=== PATIENT | male | born 1995 | race Caucasian/White ===

== ENCOUNTER 2019-05-25 13:20 | Emergency (ER) | payer SELFPAY | END 2019-05-25 15:47 | disposition home or self-care (01) | PROVIDERS: Emergency Provider Physician Assistant; Visit Provider Physician Assistant | DX: S62.254A Nondisplaced fracture of neck of first metacarpal bone, right hand, initial encounter for closed fracture (principal); X58.XXXA Exposure to other specified factors, initial encounter; I10 Essential (primary) hypertension; F17.210 Nicotine dependence, cigarettes, uncomplicated ==

== ENCOUNTER → 2019-06-03 15:16 | Outpatient (BNVA) | payer SELFPAY | PROVIDERS: PCP Family Medicine; Visit Provider Orthopaedic Surgery | DX: S62.201A Unspecified fracture of first metacarpal bone, right hand, initial encounter for closed fracture (principal); X58.XXXA Exposure to other specified factors, initial encounter | CPT/HCPCS: 73140 ==

== ENCOUNTER 2019-06-03 16:26 | Outpatient (CLI) | payer SELFPAY | END 2019-06-03 16:27 | disposition home or self-care (01) | LOC: SPT 16:27 | PROVIDERS: PCP Family Medicine; Visit Provider Orthopaedic Surgery | DX: Z46.89 Encounter for fitting and adjustment of other specified devices (principal) | CPT/HCPCS: L3809 ==

== ENCOUNTER 2019-06-06 17:29 | Inpatient (IN) | payer SELFPAY ==
[2019-06-06 17:30] VITALS: BP 163/110; PULSE 70; RESP 16; TEMP 36.6; O2SAT 97
[2019-06-06 17:31] VITALS: BMI 30.1
[2019-06-06 18:02] LABS: Basophils % 0.4 %; Eosinophils # 0.2 10^3/uL (0.0-0.8); Eosinophils % 1.5 %; Hematocrit 50.6 % (42.0-52.0); Hemoglobin 17.6 g/dL (11.7-16.6); Lymphocytes # 2.6 10^3/uL (0.8-4.8); Lymphocytes % 22.5 %; Mean Corpuscular HGB Conc 34.8 g/dL (30.0-36.0); Mean Corpuscular Hemoglobin 30.5 pg (28.0-34.0); Mean Corpuscular Volume 87.7 fL (80-94); Mean Platelet Volume 10.6 fL (7.4-10.4); Monocytes # 0.6 10^3/uL (0.2-0.9); Monocytes % 5.4 %; Neutrophils % 69.8 %; Nucleated Red Blood Cells % 0 %; Platelet Count 278 10^3/cmm (130-400); Red Blood Count 5.77 10^6/uL (4.1-5.3); White Blood Count 11.4 10^3/uL (4.0-10.0)
[2019-06-06 18:21] LABS: Lithium 0.1 mmol/L (0.6-1.2)
[2019-06-06 18:27] LABS: Alanine Aminotransferase 80 U/L (0-41); Albumin Level 5.4 g/dL (3.5-5.2); Alkaline Phosphatase 70 IU/L (40-130); Anion Gap 20.5 (5-19); Aspartate Amino Transferase 35 U/L (0-40); Blood Urea Nitrogen 11 mg/dL (6-20); Calcium 10.6 mg/Dl (8.6-10.0); Carbon Dioxide 27 mmol/L (22-29); Chloride 104 mmol/L (98-107); Globulin 3.5 g/dL (1.3-4.6); Glomerular Filtration Rate 104.6 mL/min (90-130); Glucose 82 mg/dL (74-109); Phenytoin Dilantin 0.8 ug/mL (10-20); Potassium 3.5 mmol/L (3.5-5.1); Sodium 148 mmol/L (136-145); Thyroid Stimulating Hormone 2.22 uIU/mL (0.27-4.20); Total Bilirubin 0.7 mg/dL (0.15-1.2); Total Protein 8.9 g/dL (6.6-8.7); Valproic Acid Level 2.8 mcg/mL (50-100)
[2019-06-06 18:29] LABS: Acetaminophen < 5.0 ug/mL (10-30); Alcohol Level < 10 mg/dL (0-10); Salicylate < 0.3 mg/dL (3-10)
--- NOTE | 2019-06-06 18:31 | ED_ITS ---
Entered by Letty Varghese, acting as scribe for Ramez Ramirez MD, [facility] [place] Jun 06, 2019 17:29 HPI - Psych General: Chief Complaint: Psychiatric Symptoms Stated Complaint: SI Time Seen by Provider: 06/06/19 18:29 Source: patient Mode of arrival: ambulatory Limitations: no limitations History of Present Illness: HPI Narrative: 23 yo Male presents to ED with complaint of suicidal ideation. Pt states that he started feeling that way at 1500 today. Pt states that he has attempted to slit his throat, cut himself, and walk in front of traffic. MD complaint: suicidal ideation Onset (ago): hour(s) (3.5) History of same: Yes Associated symptoms: Reports suicidal ideation Review of Systems General: Reports: 10 or more systems reviewed and unremarkable except in HPI and below Psych: Reports: suicidal ideation PFSH ED PFSH: Statuses (acute, chronic, etc) shown below reflect problem list status as previously entered and may not be historically accurate Medical History (Updated 06/06/19 @ 19:32 by Ramez Ramirez MD, [facility] [place]) Chronic back pain (Acute) Depression (Acute) Heart murmur (Acute) Hemoptysis (Acute) Hepatitis (Acute) History of suicidal ideation (Acute) HTN (hypertension) (Acute) Leukocytosis (Acute) Pharyngitis (Acute) Tension type headache (Acute) Tonsillitis (Acute) Surgical History (Updated 06/06/19 @ 19:09 by Letty Varghese) History of circumcision (Acute) Social History Smoking and tobacco status: current every day smoker cigarettes Packs smoked per day: 1 Alcohol intake: current Alcohol intake frequency: holidays/special occasions only Physical Exam Const: COMMON NORMALS: no apparent distress, average body habitus, oriented x3, no limitations, healthy appearing, alert and well nourished HENMT: COMMON NORMALS: normocephalic, head/scalp atraumatic, hearing grossly normal bilaterally, external ears normal, EAC's normal, TM's normal bilaterally, external nose normal, nasal mucous membranes and turbinates normal, moist oral mucous membranes, oropharynx normal, dentition normal and gingiva normal HEAD & SCALP: normocephalic and atraumatic NOSE: external nose normal and nasal mucous membranes and turbinates normal EXTERNAL EAR: Yes external ears normal EXTERNAL AUDITORY CANAL: EAC's normal TYMPANIC MEMBRANE: TM's normal bilaterally Eye: COMMON NORMALS: PERRL, EOMs intact bilaterally, conjunctivae normal, no scleral icterus, no papilledema, normal visual small by confrontation and fundi normal bilaterally CONJUNCTIVA: Yes conjunctivae normal PUPIL: Yes PERRL DIRECT OPHTHALMOSCOPY: Yes no papilledema and Yes fundi normal bilaterally Neck/C-Spine: COMMON NORMALS: full ROM, supple, no meningeal signs, no JVD and no carotid bruits Chest: COMMONS NORMALS: inspection of chest normal and palpation of chest normal Resp: COMMON NORMALS: normal respiratory effort, no retractions, no use of accessory muscles, clear to auscultation bilaterally and percussion normal AUSCULTATION: clear to auscultation bilaterally PERCUSSION: percussion normal Cardio: COMMON NORMALS: no JVD, regular rate, regular rhythm, S1 normal heart sound, S2 normal heart sound, no gallops, no clicks, no murmurs, no rub and peripheral pulses 2+ throughout RATE: regular rate RHYTHM: regular rhythm HEART SOUNDS: S1 normal and S2 normal PERIPHERAL PULSES: pulses 2+ throughout GI: COMMON NORMALS: normal to inspection, nondistended, normoactive bowel sounds, soft to palpation, non-tender, no hepatosplenomegaly, no masses and no bruits PALPATION: Yes soft and Yes no hepatosplenomegaly : COMMON NORMALS: Yes no CVA tenderness BLADDER/KIDNEY EXAM: Yes no CVA tenderness Back/Pelvis: COMMON NORMALS: no CVA tenderness Extremity: COMMON NORMALS: normal to inspection, full ROM, normal capillary refill, no joint enlargement, no clubbing, cyanosis or edema, no calf tenderness and no pedal edema Neuro: COMMON NORMALS: oriented x3 SENSORIUM/ORIENTATION: Yes alert MEN INGEAL SIGNS: Yes no meningeal signs Skin: COMMON NORMALS: no rashes or lesions noted, no wounds, skin turgor normal, no jaundice, no petechiae and no mottling GENERAL SKIN EXAM: no rashes or lesions noted and turgor normal MDM - Psych MDM Narrative: Medical decision making narrative: 23-year-old gentleman who presented to the emergency department with suicidal ideation. He was medically cleared and is admitted to the neuropsychiatric unit for further evaluation and management. He is voluntary at this time. Lab Data: Labs: Lab Results 06/06/19 06/06/19 06/06/19 Range/Units 05:44 05:44 17:56 WBC 11.4 H (4.0-10.0) 10^3/ uL RBC 5.77 H (4.1-5.3) 10^6/u L Hgb 17.6 H (11.7-16.6) g/dL Hct 50.6 (42.0-52.0) % MCV 87.7 (80-94) fL MCH 30.5 (28.0-34.0) pg MCHC 34.8 (30.0-36.0) g/dL RDW 12.0 L (12.1-15.1) % Plt Count 278 (130-400) 10^3/c mm MPV 10.6 H (7.4-10.4) fL Neut % (Auto) 69.8 % Lymph % (Auto) 22.5 % [place] % (Auto) 5.4 % Eos % (Auto) 1.5 % Baso % (Auto) 0.4 % Neut # (Auto) 8.0 H (1.8-7.7) 10^3/u L Lymph # (Auto) 2.6 (0.8-4.8) 10^3/u L [place] # (Auto) 0.6 (0.2-0.9) 10^3/u L Eos # (Auto) 0.2 (0.0-0.8) 10^3/u L Baso # (Auto) 0.0 (0.0-0.1) 10^3/u L Nucleated RBC % (a uto) 0 % Nucleated RBCs # 0.0 /100WBC Sodium (136-145) mmol/L Potassium (3.5-5.1) mmol/L Chloride (98-107) mmol/L Carbon Dioxide (22-29) mmol/L Anion Gap (5-19) BUN (6-20) mg/dL Creatinine (0.7-1.2) mg/dL GFR Calculation (90-130) mL/min Glucose (74-109) mg/dL Calcium (8.6-10.0) mg/Dl Total Bilirubin (0.15-1.2) mg/dL AST (0-40) U/L ALT (0-41) U/L Alkaline Phosphata se (40-130) IU/L Total Protein (6.6-8.7) g/dL Albumin (3.5-5.2) g/dL Globulin (1.3-4.6) g/dL TSH (0.27-4.20) uIU/ mL Urine Color Belk[place] (Yellow) Urine Appearance Sl hazy (CLEAR) Urine pH 5 (5-7) Ur Specific Gravit y 1.030 (1.005-1.030) Urine Protein 1+ H (Negative) Urine Glucose (UA) Norm (Normal) Urine Ketones 1+ H (Negative) Urine Occult Blood Neg (Negative) Urine Nitrate Negative (Negative) Urine Bilirubin 1+ H (NEGATIVE) Urine Urobilinogen 4 H (Negative) mg/dL Ur Leukocyte Lauren ase Negative (Negative) Urine RBC None (0-2) /hpf Urine WBC None (0-5) /hpf Ur Squamous Epith Cells Rare (0-5) Calcium Oxalate Cr ystal Rare /hpf Urine Bacteria Trace (NONE) Hyaline Casts 0-4 H Urine Mucus 2+ Urine Sperm 1+ Salicylates (3-10) mg/dL Urine Opiates Scre en Positve (Negative) ng/mL Acetaminophen (10-30) ug/mL Ur Barbiturates Sc reen Negative (Negative) ng/mL Phenytoin (10-20) ug/mL Valproic Acid (50-100) mcg/mL Carbamazepine (4.0-12.0) ug/mL Ur Phencyclidine S crn Negative (Negative) ng/mL U Benzodiazepines Scrn Negative (Negative) ng/mL [place] (0.6-1.2) mmol/L Urine Cocaine Scre en Negative (Negative) ng/mL U Marijuana (THC) Screen Positive H (Negative) ng/mL Ethyl Alcohol (0-10) mg/dL 06/06/19 06/06/19 Range/Units 17:56 17:56 WBC (4.0-10.0) 10^3/ uL RBC (4.1-5.3) 10^6/u L Hgb (11.7-16.6) g/dL Hct (42.0-52.0) % MCV (80-94) fL MCH (28.0-34.0) pg MCHC (30.0-36.0) g/dL RDW (12.1-15.1) % Plt Count (130-400) 10^3/c mm MPV (7.4-10.4) fL Neut % (Auto) % Lymph % (Auto) % [place] % (Auto) % Eos % (Auto) % Baso % (Auto) % Neut # (Auto) (1.8-7.7) 10^3/u L Lymph # (Auto) (0.8-4.8) 10^3/u L [place] # (Auto) (0.2-0.9) 10^3/u L Eos # (Auto) (0.0-0.8) 10^3/u L Baso # (Auto) (0.0-0.1) 10^3/u L Nucleated RBC % (a uto) % Nucleated RBCs # /100WBC Sodium 148 H (136-145) mmol/L Potassium 3.5 (3.5-5.1) mmol/L Chloride 104 (98-107) mmol/L Carbon Dioxide 27 (22-29) mmol/L Anion Gap 20.5 H (5-19) BUN 11 (6-20) mg/dL Creatinine 0.9 (0.7-1.2) mg/dL GFR Calculation 104.6 (90-130) mL/min Glucose 82 (74-109) mg/dL Calcium 10.6 H (8.6-10.0) mg/Dl Total Bilirubin 0.7 (0.15-1.2) mg/dL AST 35 (0-40) U/L ALT 80 H (0-41) U/L Alkaline Phosphata se 70 (40-130) IU/L Total Protein 8.9 H (6.6-8.7) g/dL Albumin 5.4 H (3.5-5.2) g/dL Globulin 3.5 (1.3-4.6) g/dL TSH 2.22 (0.27-4.20) uIU/ mL Urine Color (Yellow) Urine Appearance (CLEAR) Urine pH (5-7) Ur Specific Gravit y (1.005-1.030) Urine Protein (Negative) Urine Glucose (UA) (Normal) Urine Ketones (Negative) Urine Occult Blood (Negative) Urine Nitrate (Negative) Urine Bilirubin (NEGATIVE) Urine Urobilinogen (Negative) mg/dL Ur Leukocyte Lauren ase (Negative) Urine RBC (0-2) /hpf Urine WBC (0-5) /hpf Ur Squamous Epith Cells (0-5) Calcium Oxalate Cr ystal /hpf Urine Bacteria (NONE) Hyaline Casts Urine Mucus Urine Sperm Salicylates < 0.3 L (3-10) mg/dL Urine Opiates Scre en (Negative) ng/mL Acetaminophen < 5.0 L (10-30) ug/mL Ur Barbiturates Sc reen (Negative) ng/mL Phenytoin 0.8 L (10-20) ug/mL Valproic Acid 2.8 L (50-100) mcg/mL Carbamazepine 2.0 L (4.0-12.0) ug/mL Ur Phencyclidine S crn (Negative) ng/mL U Benzodiazepines Scrn (Negative) ng/mL [place] 0.1 L (0.6-1.2) mmol/L Urine Cocaine Scre en (Negative) ng/mL U Marijuana (THC) Screen (Negative) ng/mL Ethyl Alcohol < 10 (0-10) mg/dL Discharge Plan Discharge Patient Disposition: Admitted As Inpatient Clinical Impression: Suicidal ideation Condition: Stable Prescriptions: No Action trazodone 50 mg tablet 50 mg PO BEDTIME RF: 0 (DME) thumb spica splint Qty: 1 RF: 0 Rockwell 5-325 mg Tablet 1 tab PO Q8H PRN (Reason: Pain) RF: 0 Tylenol See Rx Instructions .ROUTE .COMPLEX RF: 0 ibuprofen See Rx Instructions .ROUTE .COMPLEX RF: 0 Referrals: Eunice Louis MD [Primary Care Provider] - Coding Level of Care Code ED Plumbing Contractor for Chg Fwd The documentation recorded by the Abimael valladares Carmen, accurately reflects the service I personally performed and the decisions made by Ashley lopez Adegoke I, MD, [facility] [place] Jun 06, 2019 17:29
--- NOTE | 2019-06-06 18:44 | PC.NURSE ---
See paper 1:1 cathy paperwork scanned to chart
[2019-06-06 18:47] LABS: Add Urine Microscopic? YES; Bilirubin Urine 1+ (NEGATIVE); Blood Urine Neg (Negative); Glucose Urine UA Norm (Normal); Ketones Urine 1+ (Negative); Leukocyte Esterase Urine Negative (Negative); Nitrate Urine Negative (Negative); Protein Urine 1+ (Negative); Urine Appearance SL Hazy (CLEAR); Urine Color Amber (Yellow); Urobilinogen Urine 4 mg/dL (Negative); pH Urine 5 (5-7)
[2019-06-06 18:49] LABS: Bacteria Urine TRACE; Calcium Oxalate Crystals Urine RARE /hpf; Mucus Urine 2+; Squamous Epithelial Cell Urine RARE (0-5)
[2019-06-06 18:50] LABS: Add Urine Culture? No; Hyaline Casts Urine 0-4; Sperm Urine 1+
[2019-06-06 19:21] LABS: Barbiturates Screen Urine Negative (Negative); Benzodiazepines Screen Urine Negative (Negative); Cocaine Screen Urine Negative (Negative); PCP Screen Urine Negative (Negative); THC Screen Urine Positive (Negative)
[2019-06-06 19:34] LABS: Amphetamines Screen Urine Positive (Negative)
[2019-06-06 20:00] VITALS: BP 169/107; PULSE 84; RESP 16; O2SAT 98
[2019-06-06 20:35] VITALS: BP 149/106; PULSE 82; RESP 20; TEMP 36.8; O2SAT 97
[2019-06-06] MEDS: nicotine 2 mg Gum BUCCAL (21:12)
[2019-06-06] MEDS: acetaminophen 325 mg Tablet 650 MG PO (21:12)
[2019-06-07 06:00] VITALS: BP 116/75; PULSE 74; RESP 17; TEMP 36.6; O2SAT 97
[2019-06-07 14:00] VITALS: BP 120/68; PULSE 71; RESP 20; TEMP 36.3; O2SAT 97
[2019-06-07] MEDS: acetaminophen 325 mg Tablet 650 MG PO ×2 (14:06→19:35)
[2019-06-07] MEDS: nicotine 2 mg Gum BUCCAL ×3 (14:07→23:00)
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
[2019-06-07] MEDS: fluoxetine 20 mg Capsule PO (18:18)
[2019-06-07 20:05] VITALS: BP 137/75; PULSE 73; RESP 18; TEMP 36.6; O2SAT 97
[2019-06-08 06:00] VITALS: BP 112/71; PULSE 54; RESP 15; TEMP 36.6; O2SAT 97
[2019-06-08] MEDS: fluoxetine 20 mg Capsule PO (08:13)
--- NOTE | 2019-06-08 11:47 | PM.NPN ---
Subjective NPU Subjective: Interval history: Umang presents today reporting that he still felt depressed but he is optimistic that the medications we have discussed will be part of the process of him getting better. He endorses continued interest and commitment to the possibility of an inpatient rehab if that is something that can be arranged for him. He denies any side effects to the Prozac and we discussed the risks benefits and alternatives of starting the Lamictal tomorrow, and he understood and agreed to proceed as is documented in this note. He endorses that he is sleeping a bit much and he is eating fine. Mental Status Exam MSE Comments: This is an obese white male with adequate dress, grooming and eye contact. No abnormal movements except for psychomotor retardation. Cooperative with exam in no acute distress. Speech was decreased rate and volume. Mood described as depressed affect congruent. Thought process organized. Thought content: Patient denied any suicidal or homicidal ideation, there were no delusions reported or noted, he denied any auditory or visual hallucinations. Attention and concentration were intact and memory appeared reliable but none were formally tested. He is alert and oriented x3. Insight and judgment appear fair Vitals/I&O/Wt Last Vital Signs Temp 98.4 F 06/08/19 20:40 Pulse 71 06/08/19 20:40 Resp 17 06/08/19 20:40 BP 122/67 06/08/19 20:40 Pulse Ox 97 06/08/19 20:40 A&P Additional A&P Information This is a 23-year-old white male who presents with suicidal thoughts against the backdrop of recent loss of his job, loss of his children to DFS and possible separation from his with active depression and a significant history of trauma. 1. Continue current medication. Except: 2. Start Lamictal 25 mg p.o. every morning with a dose titration of 25 mg/week for 3 weeks for a final dose of 100 mg to be reevaluated by his outpatient provider that will occur after discharge. 3. Encouraged individual, group and milieu therapy. 4. Continue to 15-minute checks for safety. 5. Encourage plan for discharge to a sober living facility at the highest level of care to which he is willing to commit. Involuntary Hold Information 96 Hour Hold: 96 Hour Involuntary Admission: No Attestations NPU Medical Necessity Statement*: Inpatient hospitalization is medically necessary and the clinically appropriate intervention at this time.Looking for inpatient rehab bed. We will monitor medications and titrate to effect. Likely length of stay 2-4 days. Coding Level of Care Code Acute Chemic Mangler for Yina Alfaro
[2019-06-08 13:58] VITALS: BP 122/75; PULSE 62; RESP 20; TEMP 36.9; O2SAT 98
[2019-06-08 20:40] VITALS: BP 122/67; PULSE 71; RESP 17; TEMP 36.9; O2SAT 97
[2019-06-08] MEDS: nicotine 2 mg Gum BUCCAL (21:01)
[2019-06-08] MEDS: acetaminophen 325 mg Tablet 650 MG PO (21:02)
[2019-06-09 06:00] VITALS: BP 124/81; PULSE 55; RESP 19; TEMP 36.9; O2SAT 98
[2019-06-09] MEDS: fluoxetine 20 mg Capsule PO (08:59)
[2019-06-09] MEDS: nicotine 2 mg Gum BUCCAL ×3 (13:03→17:46)
[2019-06-09] MEDS: lamoTRIgine 25 mg Tablet PO (13:03)
[2019-06-09 14:00] VITALS: BP 131/85; PULSE 66; RESP 18; TEMP 36.6; O2SAT 97
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
[2019-06-09 17:20] VITALS: BP 131/85; PULSE 66; RESP 18; TEMP 36.6; O2SAT 97
[2019-06-09 17:52] VITALS: BP 131/85; PULSE 66; RESP 18; TEMP 36.6; O2SAT 97
== END 2019-06-09 18:01 | disposition home or self-care (01) | DRG 881 ==
LOC: ER 19:32 → NP 19:52
PROVIDERS: Family Medicine; Admitting Provider Psychiatry & Neurology Psychiatry; Emergency Provider Family Medicine; PCP Family Medicine; Visit Provider Psychiatry & Neurology Psychiatry
DX: F32.9 Major depressive disorder, single episode, unspecified (principal); F15.20 Other stimulant dependence, uncomplicated; R45.851 Suicidal ideations; F17.210 Nicotine dependence, cigarettes, uncomplicated; Z81.8 Family history of other mental and behavioral disorders; F41.9 Anxiety disorder, unspecified; G93.2 Benign intracranial hypertension; F12.20 Cannabis dependence, uncomplicated; F43.11 Post-traumatic stress disorder, acute; E66.9 Obesity, unspecified; Z68.30 Body mass index [BMI] 30.0-30.9, adult
CPT/HCPCS: 12345; 80048; 80053; 80156; 80164; 80178; 80185; 80307; 81003; 84443; 85025; 99281

== ENCOUNTER 2019-06-12 23:10 | Inpatient (IN) | payer SELFPAY ==
[2019-06-12 23:20] VITALS: BP 175/104; PULSE 78; RESP 16; TEMP 36.8; O2SAT 98; BMI 29.5
[2019-06-12 23:31] VITALS: BP 161/102
--- NOTE | 2019-06-12 23:39 | W.ED.PSYCH ---
HPI - Psych General: Chief Complaint: Psychiatric Symptoms Stated Complaint: mhe Time Seen by Provider: 06/12/19 23:39 History of Present Illness: HPI Narrative: Patient comes in with complaints of being suicidal. Said he does have a plan to step out in front of a car in the road. Said him and his is getting . He does have a restraining order on him now. Just feels hopeless and depressed. Was in the stress unit last week. Has been going [facility] since age 14 monthly he says. Been put on Zoloft and Prozac said neither 1 of those are working well. complaint: suicidal ideation and feels depressed Onset (ago): year(s) Duration: constant and getting worse History of same: Yes Relieving factors: none Exacerbating factors: none Context: new medication(s) Associated psychiatric symptoms: depression and suicidal ideation Associated symptoms: Reports depression Review of Systems Const: Denies: fever, chills or body aches Eyes: Denies: change in vision or blurry vision ENMT: Denies: throat pain or nasal congestion Card: Denies: chest pain or shortness of breath on exertion Resp: Denies: shortness of breath, productive cough or non-productive cough GI: Denies: abdominal pain, nausea or vomiting : Denies: difficulty urinating Musc: Denies: extremity pain Skin/Breast: Denies: rash Neuro: Denies: headache Psych: Reports: depression and sleeping less; Denies: anxiety Pedro Luis/Lymph: Denies: easy bruising PFSH ED PFSH: Statuses (acute, chronic, etc) shown below reflect problem list status as previously entered and may not be historically accurate Medical History (Updated 06/09/19 @ 06:15 by Petr Mercado MD) Chronic back pain (Acute) Depression (Acute) Heart murmur (Acute) Hemoptysis (Acute) Hepatitis (Acute) History of suicidal ideation (Acute) HTN (hypertension) (Acute) Leukocytosis (Acute) Pharyngitis (Acute) Tension type headache (Acute) Tonsillitis (Acute) Surgical History (Updated 06/06/19 @ 19:09 by Letty Varghese) History of circumcision (Acute) Social History Smoking and tobacco status: current every day smoker cigarettes Packs smoked per day: 1 Alcohol intake: current Alcohol intake frequency: holidays/special occasions only Physical Exam Const: COMMON NORMALS: no apparent distress, average body habitus and oriented x3 HENMT: COMMON NORMALS: normocephalic HEAD & SCALP: normal to inspection and normocephalic FACE & SINUS: normal facial exam Eye: COMMON NORMALS: conjunctivae normal GENERAL EYE: normal appearance of both eyes CONJUNCTIVA: Yes conjunctivae normal Neck/C-Spine: COMMON NORMALS: no JVD Chest: COMMONS NORMALS: inspection of chest normal Resp: COMMON NORMALS: normal respiratory effort and clear to auscultation bilaterally AUSCULTATION: clear to auscultation bilaterally Cardio: COMMON NORMALS: no JVD, regular rate and regular rhythm RATE: regular rate RHYTHM: regular rhythm GI: COMMON NORMALS: normal to inspection, nondistended, normoactive bowel sounds Extremity: COMMON NORMALS: normal to inspection and full ROM OTHER: Has brace on right wrist from an injury. Neuro: COMMON NORMALS: oriented x3 MDM - Psych MDM Narrative: Medical decision making narrative: Spoke with Dr. Church he agrees to admit patient discussed case with Dr. Mir Lab Data: Labs: Lab Results 06/12/19 06/12/19 06/12/19 Range/Units 23:40 23:40 23:45 WBC 13.0 H (4.0-10.0) 10^3/ uL RBC 5.14 (4.1-5.3) 10^6/u L Hgb 15.5 (11.7-16.6) g/dL Hct 45.5 (42.0-52.0) % MCV 88.5 (80-94) fL MCH 30.2 (28.0-34.0) pg MCHC 34.1 (30.0-36.0) g/dL RDW 12.2 (12.1-15.1) % Plt Count 290 (130-400) 10^3/c mm MPV 9.9 (7.4-10.4) fL Neut % (Auto) 65.4 % Lymph % (Auto) 25.4 % [place] % (Auto) 6.3 % Eos % (Auto) 1.8 % Baso % (Auto) 0.5 % Neut # (Auto) 8.5 H (1.8-7.7) 10^3/u L Lymph # (Auto) 3.3 (0.8-4.8) 10^3/u L [place] # (Auto) 0.8 (0.2-0.9) 10^3/u L Eos # (Auto) 0.2 (0.0-0.8) 10^3/u L Baso # (Auto) 0.1 (0.0-0.1) 10^3/u L Nucleated RBC % (a uto) 0 % Nucleated RBCs # 0.0 /100WBC Sodium (136-145) mmol/L Potassium (3.5-5.1) mmol/L Chloride (98-107) mmol/L Carbon Dioxide (22-29) mmol/L Anion Gap (5-19) BUN (6-20) mg/dL Creatinine (0.7-1.2) mg/dL GFR Calculation (90-130) mL/min Glucose (74-109) mg/dL Calcium (8.6-10.0) mg/Dl Total Bilirubin (0.15-1.2) mg/dL AST (0-40) U/L ALT (0-41) U/L Alkaline Phosphata se (40-130) IU/L Total Protein (6.6-8.7) g/dL Albumin (3.5-5.2) g/dL Globulin (1.3-4.6) g/dL TSH (0.27-4.20) uIU/ mL Urine Color Straw (Yellow) Urine Appearance Clear (CLEAR) Urine pH 7 (5-7) Ur Specific Gravit y 1.010 (1.005-1.030) Urine Protein Neg (Negative) Urine Glucose (UA) Norm (Normal) Urine Ketones Negative (Negative) Urine Occult Blood Neg (Negative) Urine Nitrate Negative (Negative) Urine Bilirubin Neg (NEGATIVE) Urine Urobilinogen Norm (Negative) mg/dL Ur Leukocyte Lauren ase Negative (Negative) Salicylates (3-10) mg/dL Urine Opiates Scre en Negative (Negative) ng/mL Acetaminophen (10-30) ug/mL Ur Barbiturates Sc reen Negative (Negative) ng/mL Ur Phencyclidine S crn Negative (Negative) ng/mL Ur Amphetamines Sc reen Negative (Negative) ng/mL U Benzodiazepines Scrn Negative (Negative) ng/mL Urine Cocaine Scre en Negative (Negative) ng/mL U Marijuana (THC) Screen 51 (Negative) ng/mL Ethyl Alcohol (0-10) mg/dL 06/12/19 06/12/19 Range/Units 23:45 23:45 WBC (4.0-10.0) 10^3/ uL RBC (4.1-5.3) 10^6/u L Hgb (11.7-16.6) g/dL Hct (42.0-52.0) % MCV (80-94) fL MCH (28.0-34.0) pg MCHC (30.0-36.0) g/dL RDW (12.1-15.1) % Plt Count (130-400) 10^3/c mm MPV (7.4-10.4) fL Neut % (Auto) % Lymph % (Auto) % [place] % (Auto) % Eos % (Auto) % Baso % (Auto) % Neut # (Auto) (1.8-7.7) 10^3/u L Lymph # (Auto) (0.8-4.8) 10^3/u L [place] # (Auto) (0.2-0.9) 10^3/u L Eos # (Auto) (0.0-0.8) 10^3/u L Baso # (Auto) (0.0-0.1) 10^3/u L Nucleated RBC % (a uto) % Nucleated RBCs # /100WBC Sodium 138 (136-145) mmol/L Potassium 4.4 (3.5-5.1) mmol/L Chloride 99 (98-107) mmol/L Carbon Dioxide 28 (22-29) mmol/L Anion Gap 15.4 (5-19) BUN 13 (6-20) mg/dL Creatinine 0.7 (0.7-1.2) mg/dL GFR Calculation 139.8 H (90-130) mL/min Glucose 94 (74-109) mg/dL Calcium 10.5 H (8.6-10.0) mg/Dl Total Bilirubin 0.2 (0.15-1.2) mg/dL AST 35 (0-40) U/L ALT 81 H (0-41) U/L Alkaline Phosphata se 70 (40-130) IU/L Total Protein 7.1 (6.6-8.7) g/dL Albumin 4.9 (3.5-5.2) g/dL Globulin 2.2 (1.3-4.6) g/dL TSH 2.96 (0.27-4.20) uIU/ mL Urine Color (Yellow) Urine Appearance (CLEAR) Urine pH (5-7) Ur Specific Gravit y (1.005-1.030) Urine Protein (Negative) Urine Glucose (UA) (Normal) Urine Ketones (Negative) Urine Occult Blood (Negative) Urine Nitrate (Negative) Urine Bilirubin (NEGATIVE) Urine Urobilinogen (Negative) mg/dL Ur Leukocyte Lauren ase (Negative) Salicylates < 0.3 L (3-10) mg/dL Urine Opiates Scre en (Negative) ng/mL Acetaminophen < 5.0 L (10-30) ug/mL Ur Barbiturates Sc reen (Negative) ng/mL Ur Phencyclidine S crn (Negative) ng/mL Ur Amphetamines Sc reen (Negative) ng/mL U Benzodiazepines Scrn (Negative) ng/mL Urine Cocaine Scre en (Negative) ng/mL U Marijuana (THC) Screen (Negative) ng/mL Ethyl Alcohol < 10 (0-10) mg/dL Discharge Plan Discharge Admit Provider: Bradly Church Discharge Date/Time: 06/13/19 01:03 Coding Level of Care Code ED Play Writer for Atulg Fwd Exam Problem Focused
[2019-06-12 23:56] LABS: Basophils # 0.1 10^3/uL (0.0-0.1); Basophils % 0.5 %; Eosinophils # 0.2 10^3/uL (0.0-0.8); Eosinophils % 1.8 %; Hematocrit 45.5 % (42.0-52.0); Hemoglobin 15.5 g/dL (11.7-16.6); Lymphocytes # 3.3 10^3/uL (0.8-4.8); Lymphocytes % 25.4 %; Mean Corpuscular HGB Conc 34.1 g/dL (30.0-36.0); Mean Corpuscular Hemoglobin 30.2 pg (28.0-34.0); Mean Corpuscular Volume 88.5 fL (80-94); Mean Platelet Volume 9.9 fL (7.4-10.4); Monocytes # 0.8 10^3/uL (0.2-0.9); Monocytes % 6.3 %; Neutrophils # 8.5 10^3/uL (1.8-7.7); Neutrophils % 65.4 %; Nucleated Red Blood Cells % 0 %; Platelet Count 290 10^3/cmm (130-400); Red Blood Count 5.14 10^6/uL (4.1-5.3); Red Cell Distribution Width 12.2 % (12.1-15.1)
[2019-06-13] LABS: Add Urine Microscopic? NO
[2019-06-13 00:08] LABS: Bilirubin Urine Neg (NEGATIVE); Blood Urine Neg (Negative); Glucose Urine UA Norm (Normal); Ketones Urine Negative (Negative); Leukocyte Esterase Urine Negative (Negative); Nitrate Urine Negative (Negative); Protein Urine Neg (Negative); Urine Appearance Clear (CLEAR); Urine Color Straw (Yellow); Urobilinogen Urine Norm (Negative); pH Urine 7 (5-7)
[2019-06-13 00:15] LABS: Alanine Aminotransferase 81 U/L (0-41); Albumin Level 4.9 g/dL (3.5-5.2); Alkaline Phosphatase 70 IU/L (40-130); Anion Gap 15.4 (5-19); Aspartate Amino Transferase 35 U/L (0-40); Blood Urea Nitrogen 13 mg/dL (6-20); Calcium 10.5 mg/Dl (8.6-10.0); Carbon Dioxide 28 mmol/L (22-29); Chloride 99 mmol/L (98-107); Globulin 2.2 g/dL (1.3-4.6); Glomerular Filtration Rate 139.8 mL/min (90-130); Glucose 94 mg/dL (74-109); Potassium 4.4 mmol/L (3.5-5.1); Sodium 138 mmol/L (136-145); Total Bilirubin 0.2 mg/dL (0.15-1.2); Total Protein 7.1 g/dL (6.6-8.7)
[2019-06-13 00:20] LABS: Thyroid Stimulating Hormone 2.96 uIU/mL (0.27-4.20)
[2019-06-13 00:35] LABS: Acetaminophen < 5.0 ug/mL (10-30); Alcohol Level < 10 mg/dL (0-10); Salicylate < 0.3 mg/dL (3-10)
[2019-06-13 00:59] LABS: Amphetamines Screen Urine Negative (Negative); Barbiturates Screen Urine Negative (Negative); Benzodiazepines Screen Urine Negative (Negative); Cocaine Screen Urine Negative (Negative); Opiate Screen Urine Negative (Negative); PCP Screen Urine Negative (Negative); THC Screen Urine 51 ng/mL (Negative)
[2019-06-13 01:02] VITALS: BP 144/78; PULSE 71; RESP 18; TEMP 37.2; O2SAT 98
[2019-06-13 01:08] VITALS: BP 138/91; PULSE 80; RESP 20; TEMP 37; O2SAT 98
[2019-06-13] MEDS: acetaminophen 325 mg Tablet 650 MG PO ×3 (01:50→13:23)
[2019-06-13 06:00] VITALS: BP 109/61; PULSE 75; RESP 20; TEMP 36.8; O2SAT 97
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
[2019-06-13] MEDS: fluoxetine 20 mg Capsule PO (08:43)
[2019-06-13] MEDS: lamoTRIgine 25 mg Tablet PO ×2 (08:43→18:00)
[2019-06-13] MEDS: nicotine 2 mg Gum BUCCAL ×3 (13:24→20:41)
[2019-06-13 14:00] VITALS: BP 135/79; PULSE 83; RESP 18; TEMP 36.4; O2SAT 97
[2019-06-13 19:59] VITALS: BP 138/89; PULSE 87; RESP 21; TEMP 36.4; O2SAT 97
[2019-06-13] MEDS: trazodone 150 mg Tablet PO (20:41)
[2019-06-13 22:00] VITALS: BP 138/89; PULSE 87; RESP 21; TEMP 36.4; O2SAT 97
[2019-06-14 06:00] VITALS: BP 121/63; PULSE 59; RESP 19; TEMP 36.7; O2SAT 96
[2019-06-14] MEDS: fluoxetine 20 mg Capsule PO (09:29)
[2019-06-14] MEDS: lamoTRIgine 25 mg Tablet PO (09:29)
[2019-06-14] MEDS: nicotine 2 mg Gum BUCCAL ×3 (12:19→22:10)
[2019-06-14 14:00] VITALS: BP 128/68; PULSE 88; RESP 18; TEMP 36.4; O2SAT 96
[2019-06-14] MEDS: hyDROXYzine 25 mg Capsule 50 MG PO (15:06)
--- NOTE | 2019-06-14 16:22 | PM.NPN ---
Vitals/I&O/Wt Last Vital Signs Temp 97.6 F 06/14/19 14:00 Pulse 88 06/14/19 14:00 Resp 18 06/14/19 14:00 BP 128/68 06/14/19 14:00 Pulse Ox 96 06/14/19 14:00 Weight last 48 hrs Weight 92.17 kg Weight 90.718 kg Data NPU : 06/12/19 23:45 06/12/19 23:45 A&P Additional A&P Information Mental Status Exam: He is believed to be a reliable informant is information provided is internally consistent consistent with fat in the chart. Appearance: hygiene is fair; no gross neurological deficits., gait is unremarkable; AIMS=0 Speech: Speech is of normal rate and rhythm and easily understood. Thought processes: Thought processes are abstract. Judgment is adequate for safety. Associations: intact Psychotic processes: There is no indication of guarding or paranoia. There is no attention to the internal stimuli. Auditory and visual hallucinations are denied. Judgment: Insight is fair. Problem solving skills are adequate for safety. Orientation: The patient is oriented to person, place time and situation. Memory: no deficits noted in immediate, intermediate, or remote spheres. Attention: The patient is alert and interpersonally engaged. Language: Verbalizations are coherent. Fund of knowledge: Fund of knowledge is adequate. Affect/Mood: Affect is consistent with Euthymic mood. He denied suicidal ideation Affective range is appropriate. Psychosis: perception unimpaired except through cognitive distortion; reality testing intact. Diagnoses: Adjustment disorder with anxiety Assessment: His report of utilizing hydroxyzine on a when necessary basis for anxiety is backed up by records in his outpatient chart. That will be provided Treatment plan: Due to the psychiatric conditions and treatment listed in the Assessment and Plan - the patient requires continued hospitalization. Will provide a safe and therapeutic environment for patient.. Will continue inpatient treatment to allow for medication adjustment and monitoring. Will continue q15 min safety checks. Hospital day #2: His report of utilizing hydroxyzine on a when necessary basis for anxiety is backed up by records in his outpatient chart. That will be provided Will continue current medications. Will increase Lamictal to 50 mg daily and change his when necessary bedtime medication to prazosin. hospital day #3: No medication changes at this time. He is largely being allowed to remain in the hospital such that he does not freeze frigid temperatures before he gets to the homeless halfway. Monitor patient's mood, sleep, appetite, and behavior closely. Encourage patient to participate in individual and group therapeutic sessions on the virk. Estimated length of stay 5 days The expected benefits and potential side effects of patient's psychiatric medications were discussed with the patient. The patient understands and consents to treatment.CRITERIA FOR DISCHARGE: stable on medications and no longer an im Involuntary Hold Information 96 Hour Hold: 96 Hour Involuntary Admission: No Attestations NPU Medical Necessity Statement*: patient will remain in hospital 1 more night and be discharged in the morning. He has nowhere to go and the low temperature for tonight is supposed to be 9? about 0 Coding Level of Care Code Acute Plastic Joint Maker for Yina Alfaro
[2019-06-14] MEDS: lamoTRIgine 25 mg Tablet 50 MG PO (18:02)
[2019-06-14] MEDS: trazodone 150 mg Tablet PO (20:34)
[2019-06-14 20:38] VITALS: BP 129/75; PULSE 78; RESP 16; TEMP 36.9; O2SAT 96
[2019-06-15 06:00] VITALS: BP 85/54; PULSE 61; RESP 15; TEMP 36.6; O2SAT 97
--- NOTE | 2019-06-15 08:09 | PM.NDC ---
Reason for Visit Reason for Visit: Reason For Visit: [facility] Hospital Course Discharge Summary Chief complaint: Yeah, I know I was just in here a few days ago. But they didn't give me anything for anxiety. History of present illness: Umang Caldwell This 23-year-old man who has a store diagnosis of PTSD and major depression who was just released from this hospital less than 72 hours ago on a combination of fluoxetine and lamotrigine. He understands that it is too early to receive significant benefit from these medications and is not complaining of any side effects. However he went to the emergency room and convinced the staff there that he needed to be admitted because they forgot to give him something for anxiety he seemed perplexed at the concept of utilizing coping skills to deal with anxiety rather than use a pill. This attitude is reflected in his outpatient notes from the [facility] in terms of diagnostic testing himself responsibility in lieu relying on assistance from medications or others. Otherwise he denies being depressed. He denies suicidal or homicidal ideation. He does report that he be very difficult psychosocial situation having lost everything . However he feels that he if he can get started back on something for anxiety and then have his placement at the longterm arranged, he will be doing sufficiently well. Information provided by emergency room staff: HPI Narrative: Patient comes in with complaints of being suicidal. Said he does have a plan to step out in front of a car in the road. Said him and his is getting . He does have a restraining order on him now. Just feels hopeless and depressed. Was in the stress unit last week. Has been going [facility] since age 14 monthly he says. Been put on Zoloft and Prozac said neither 1 of those are working well. Mental health history: Ademission note from 06/07/2019 (less than one week prior to this admission) History of Present Illness Umang Caldwell is a 23 year old male who presents today reporting that things have been pretty messy. He reports that he has struggled recently in his life with his marriage. He reports his been about 5 years in that relationship is ending. He reports that he acknowledges to some degree that he has caused some issues. But unfortunately he identifies that what he was trying to prevent is probably still going to happen. He has been hoping to talk to his maybe convince her to avoid ending their relationship but is understanding is that she has filed for divorce. Reports that he has a very rough history with from and addiction. He does acknowledge that he currently has had some slip-ups and identifies the need to get back on medication as well as focus on his recovery. He reports he had his first hospitalization around 10 years old possibly and that this is his third or fourth hospitalization. He reports he was diagnosed with ADHD posttraumatic stress disorder major depressive disorder and bipolar disorder additionally he had anxiety disorder diagnosed. He reports around age 15 he started drinking smoking marijuana and using cigarettes by age 18 he had tried methamphetamine and endorsed that his father introduced him to it. He reports that he has had daily use of marijuana smokes about a pack of cigarettes a day denies rehab or DUI. He got when he was 18 is a 2-year-old daughter and 4-year-old son. He recently lost his job at [employer]. Then they lost her children to [employer]. He reports that is because the trailer that they lives in/living had mice and roaches and was deplorable and there were concerns that the kids were outside unsupervised. We discussed the risks benefits and alternatives of a trial of a couple medications and he understood and agreed to proceed as is documented in his note. Hospital course: Was never really clear why the patient came into the hospital while he was admitted. Was a very cold weekend. He said he wanted pills for his anxiety. He was educated with regard to the fact that medication for anxiety is habit-forming and counter productive for his needs. He remained in the hospital 2 nights because of the severe cold and not having any place to go. Involuntary Hold Information 96 Hour Hold: 96 Hour Involuntary Admission: No Discharge Data Vitals: Last Vital Signs Temp 98 F 06/15/19 06:00 Pulse 61 06/15/19 06:00 Resp 15 06/15/19 06:00 BP 85/54 06/15/19 06:00 Pulse Ox 97 06/15/19 06:00 Discharge Plan Discharge Patient Disposition: Home, Self-Care Condition: Stable Prescriptions: New lamotrigine 25 mg Tablet 50 mg PO BID Qty: 120 RF: 1 trazodone 150 mg Tablet 150 mg PO BEDTIME Qty: 30 RF: 1 hydroxyzine pamoate 25 mg Capsule 25 mg PO Q8H PRN (Reason: Anxiety) Qty: 30 RF: 1 Continued fluoxetine 20 mg Capsule 20 mg PO DAILY 30 Days Qty: 30 RF: 0 Discontinued lamotrigine 25 mg Tablet 25 mg PO DAILY 20 Days Qty: 41 RF: 0 No Action (DME) thumb spica splint Qty: 1 RF: 0 Discharge Orders: Discharge Order (Routine); Ordered 06/15/19 Ordered By: Bradly Church Referrals: [facility] [Outside] Loraine Ponce APRN [Nurse Practitioner] - 06/21/19 11:00 am (4 week follow up-medications) Eunice Louis MD [Primary Care Provider] - Jacques Hernandez MD [Physician] - 06/24/19 1:00 pm Discharge Diet: Regular Discharge Activity: Increase activity as tolerated and May return to work/school without restrictions Discharge Attestations NPU Time Spent in Discharge Care*: greater than 30 min Coding Level of Care Code Acute Loft Worker Apprentice for Yina Alfaro
--- NOTE | 2019-06-15 08:11 | P.DS_ITS ---
Reason for Visit Reason for Visit: Reason For Visit: mhe Involuntary Hold Information 96 Hour Hold: 96 Hour Involuntary Admission: No Mental Status Exam MSE Comments: Discharge Mental Status Exam: Appearance: hygiene is good; no gross neurological deficits., gait is unremarkable; AIMS=0 Speech: Speech is of normal rate and rhythm and easily understood. Thought processes: Thought processes are abstract. Judgment is adequate for safety. Associations: intact Psychotic processes: There is no indication of guarding or paranoia. There is no attention to the internal stimuli. Auditory and visual hallucinations are denied. Judgment: Insight is fair. Problem solving skills are adequate for safety. Orientation: The patient is oriented to person, place time and situation. Memory: no deficits noted in immediate, intermediate, or remote spheres. Attention: The patient is alert and interpersonally engaged. Language: Verbalizations are coherent. Fund of knowledge: Fund of knowledge is adequate. Affect/Mood: Affect is consistent with a euthymic mood. denied suicidal ideation Affective range is appropriate. Psychosis: perception unimpaired except through cognitive distortion; reality testing intact. Discharge Data Vitals: Last Vital Signs Temp 98 F 06/15/19 06:00 Pulse 61 06/15/19 06:00 Resp 15 06/15/19 06:00 BP 85/54 06/15/19 06:00 Pulse Ox 97 06/15/19 06:00 Discharge Plan Discharge Patient Disposition: Home, Self-Care Condition: Stable Prescriptions: New lamotrigine 25 mg Tablet 50 mg PO BID Qty: 120 RF: 1 trazodone 150 mg Tablet 150 mg PO BEDTIME Qty: 30 RF: 1 hydroxyzine pamoate 25 mg Capsule 25 mg PO Q8H PRN (Reason: Anxiety) Qty: 30 RF: 1 Continued fluoxetine 20 mg Capsule 20 mg PO DAILY 30 Days Qty: 30 RF: 0 Discontinued lamotrigine 25 mg Tablet 25 mg PO DAILY 20 Days Qty: 41 RF: 0 No Action (DME) thumb spica splint Qty: 1 RF: 0 Discharge Orders: Discharge Order (Routine); Ordered 06/15/19 Ordered By: Bradly Church Referrals: [facility] [Outside] Loraine Ponce APRN [Nurse Practitioner] - 06/21/19 11:00 am (4 week follow up-medications) Eunice Louis MD [Primary Care Provider] - Jacques Hernandez MD [Physician] - 06/24/19 1:00 pm Discharge Diet: Regular Discharge Activity: Increase activity as tolerated and May return to work/school without restrictions Discharge Attestations NPU Time Spent in Discharge Care*: greater than 30 min Coding Level of Care Code Acute Filling Technician for Yina Alfaro
[2019-06-15] MEDS: lamoTRIgine 25 mg Tablet 50 MG PO (09:47)
[2019-06-15] MEDS: fluoxetine 20 mg Capsule PO (09:47)
[2019-06-15] MEDS: nicotine 2 mg Gum BUCCAL ×2 (10:10→12:13)
[2019-06-15 10:21] VITALS: BP 85/54; PULSE 61; RESP 15; TEMP 36.6; O2SAT 97
[2019-06-15 10:25] VITALS: BP 85/54; PULSE 61; RESP 15; TEMP 36.6; O2SAT 97
[2019-06-15 11:11] VITALS: BP 126/72; PULSE 61; RESP 15; TEMP 36.7; O2SAT 97
== END 2019-06-15 14:17 | disposition home or self-care (01) | DRG 881 ==
LOC: ER 06-13 00:40 → NP 06-13 01:02
PROVIDERS: Nurse Practitioner Family; Admitting Provider Psychiatry & Neurology Psychiatry; Emergency Provider Emergency Medicine; PCP Family Medicine; Visit Provider Psychiatry & Neurology Psychiatry
DX: F32.9 Major depressive disorder, single episode, unspecified (principal); R45.851 Suicidal ideations; Z79.899 Other long term (current) drug therapy; F43.10 Post-traumatic stress disorder, unspecified; F43.22 Adjustment disorder with anxiety
CPT/HCPCS: 12345; 80053; 80307; 81003; 84443; 85025; 99284; A9270

== ENCOUNTER 2019-06-18 23:38 | Emergency (ER) | payer SELFPAY ==
[2019-06-18 23:44] VITALS: BP 143/93; PULSE 93; RESP 18; TEMP 36.6; O2SAT 97; BMI 29.5
--- NOTE | 2019-06-19 00:16 | W.ED.EXTPRO ---
HPI - Extremity Problem General: Chief complaint: Extremity Injury, Upper Stated complaint: hand pain Time Seen by Provider: 06/19/19 00:16 Source: patient Mode of arrival: ambulatory Limitations: no limitations History of Present Illness: HPI Narrative: slipped and fell on wet grass and states he landed on R hand wrong; reports previous thumb fracture last month MD Complaint: extremity pain Onset (ago): hour(s) Pain Consistency: constant Location: right Relieving factors: nothing and immobilization Exacerbating factors: range of motion Associated symptoms: Reports no associated symptoms Review of Systems Musc: Reports: extremity pain; Denies: neck pain or back pain Neuro: Denies: numbness in extremities or changes in sensation PFSH ED PFSH: Statuses (acute, chronic, etc) shown below reflect problem list status as previously entered and may not be historically accurate Medical History (Updated 06/19/19 @ 00:44 by CHARISSA Dumont) Chronic back pain (Acute) Depression (Acute) Heart murmur (Acute) Hemoptysis (Acute) Hepatitis (Acute) History of suicidal ideation (Acute) HTN (hypertension) (Acute) Leukocytosis (Acute) Pharyngitis (Acute) Tension type headache (Acute) Tonsillitis (Acute) Surgical History (Updated 06/06/19 @ 19:09 by Letty Varghese) History of circumcision (Acute) Social History Smoking and tobacco status: current every day smoker cigarettes Packs smoked per day: 1 Alcohol intake: current Alcohol intake frequency: holidays/special occasions only Physical Exam Const: COMMON NORMALS: no apparent distress, oriented x3, no limitations, alert and well nourished Extremity: OTHER: TTP at base of R thumb; no swelling noted; NV intact Neuro: COMMON NORMALS: oriented x3 SENSORIUM/ORIENTATION: Yes alert Course Vital Signs: Vital signs: Vital Signs Temperature 97.8 F 06/18/19 23:44 Pulse Rate 93 06/18/19 23:44 Respiratory Rate 18 06/18/19 23:44 Blood Pressure 120/81 06/19/19 00:53 Pulse Oximetry 96 06/19/19 00:53 MDM - Extremity (Nontraumatic) Imaging Data^: R hand: My impression: appears to have an acute on chronic fracture involving the base of the 1st metacarpal Discharge Plan Discharge Patient Disposition: Home, Self-Care Clinical Impression: Fracture of thumb, right, closed Qualifiers: Encounter type: initial encounter Phalanx: proximal Fracture alignment: nondisplaced Qualified Code(s): S62.514A - Nondisplaced fracture of proximal phalanx of right thumb, initial encounter for closed fracture Condition: Stable Prescriptions: New Tylenol-Codeine #3 300-30 mg tablet 1 tab PO Q6H PRN (Reason: pain) Qty: 14 RF: 0 No Action (DME) thumb spica splint Qty: 1 RF: 0 lamotrigine 25 mg Tablet 50 mg PO BID Qty: 120 RF: 1 trazodone 150 mg Tablet 150 mg PO BEDTIME Qty: 30 RF: 1 hydroxyzine pamoate 25 mg Capsule 25 mg PO Q8H PRN (Reason: Anxiety) Qty: 30 RF: 1 fluoxetine 20 mg Capsule 20 mg PO DAILY 30 Days Qty: 30 RF: 0 Discharge Orders: Discharge Order (Routine); Ordered 06/19/19 Ordered By: Velia Fink Referrals: Eunice Louis MD [Primary Care Provider] - Discharge Diet: Usual diet Activity Restrictions/Additional Instructions: Follow up with orthopedics at your scheduled appointment on 06/24. Discharge Date/Time: 06/19/19 00:55 Coding Level of Care Code ED Insurance Account Assistant for Yina Fwd Exam Problem Focused
--- NOTE | 2019-06-19 00:19 | XRR_ITS ---
PROCEDURE INFORMATION: Exam: XR Right Hand Exam date and time: 06/19/2019 12:20 AM Age: 23 years old Clinical indication: Injury or trauma; Initial encounter; Blunt trauma (contusions or hematomas; Hand; Right; Injury details: Sp fall today, HX prior FX 4 weeks ago; Additional info: Fall/pain TECHNIQUE: Imaging protocol: XR Right hand. Views: 3 or more views. COMPARISON: CR Hand 3 views, RIGHT* [id number] 05/21/2019 2:39 PM FINDINGS: Bones/joints: The fracture of the 1st metacarpal base is again identified. There is no significant change in alignment of the fracture fragments but there is exuberant bony remodeling/callus. Mild depression of the articular surface is unchanged. No new fracture compared to the old exam. No dislocation. Soft tissues: No foreign body. XR/XR hand RT min 3V* [id number] IMPRESSION: Healing fracture of the 1st metacarpal base.
[2019-06-19] MEDS: ketorolac 60 mg/2 mL INJ IM (00:50)
[2019-06-19 00:53] VITALS: BP 120/81; O2SAT 96
--- NOTE | 2019-06-21 14:50 | DCPLANNER ---
student accounts manager had message to schedule a follow up appointment for patient with ortho. student accounts manager called the ortho clinic, spoke with Pat, gave clinic patients information. student accounts manager was told that patient has a follow up appointment scheduled for 06.24.[address] Hernandez.
== END 2019-06-19 00:55 | disposition home or self-care (01) ==
PROVIDERS: Emergency Provider Physician Assistant; PCP Family Medicine
DX: S62.514A Nondisplaced fracture of proximal phalanx of right thumb, initial encounter for closed fracture (principal); W01.0XXA Fall on same level from slipping, tripping and stumbling without subsequent striking against object, initial encounter; I10 Essential (primary) hypertension; F17.210 Nicotine dependence, cigarettes, uncomplicated
CPT/HCPCS: 73130; 96372; 99281; J1885

== ENCOUNTER 2019-06-19 06:12 | Emergency (ER) | payer SELFPAY ==
[2019-06-19 06:22] VITALS: BP 126/82; PULSE 80; RESP 16; TEMP 36.8; O2SAT 96; BMI 29.9
--- NOTE | 2019-06-19 06:36 | W.ED.EXTPRO ---
HPI - Extremity Problem General: Chief complaint: Extremity Injury, Upper Stated complaint: Thumb pain Time Seen by Provider: 06/19/19 06:13 History of Present Illness: HPI Narrative: 23-year-old male presents with complaint of right thumb pain. About 4 to 6 weeks ago he had a fracture at the base of his first metacarpal on the right he has a thumb spica splint in place he was seen last night for this and given Tylenol with codeine he is not refilled that at all. He returns saying it is still hurting he is not taking any the prescribed medications. He denies any recurrent new injury since he was seen last night in the emergency room by Ms. Sexton. JERRY Complaint: extremity pain and joint paint Onset (ago): week(s) Pain Consistency: constant Location: right Quality: aching and constant Radiation: none Relieving factors: nothing Exacerbating factors: nothing Review of Systems Musc: Reports: joint pain and joint stiffness; Denies: extremity swelling or joint swelling PFSH ED PFSH: Statuses (acute, chronic, etc) shown below reflect problem list status as previously entered and may not be historically accurate Medical History (Updated 06/19/19 @ 06:49 by Tariq Jacobs DO) Chronic back pain (Acute) Depression (Acute) Heart murmur (Acute) Hemoptysis (Acute) Hepatitis (Acute) History of suicidal ideation (Acute) HTN (hypertension) (Acute) Leukocytosis (Acute) Pharyngitis (Acute) Tension type headache (Acute) Tonsillitis (Acute) Surgical History (Updated 06/06/19 @ 19:09 by Letty Varghese) History of circumcision (Acute) Social History Smoking and tobacco status: current every day smoker cigarettes Packs smoked per day: 1 Alcohol intake: current Alcohol intake frequency: holidays/special occasions only Physical Exam Const: COMMON NORMALS: no apparent distress GENERAL APPEARANCE: cooperative and comfortable ORIENTATION/CONSCIOUSNESS: Yes awake, Yes oriented to person, Yes oriented to place and Yes oriented to time Neck/C-Spine: COMMON NORMALS: no JVD Resp: COMMON NORMALS: normal respiratory effort, no retractions, no use of accessory muscles and clear to auscultation bilaterally AUSCULTATION: clear to auscultation bilaterally Cardio: COMMON NORMALS: no JVD, regular rate, regular rhythm and no murmurs RATE: regular rate RHYTHM: regular rhythm Extremity: COMMON NORMALS: normal to inspection, normal capillary refill, no clubbing, cyanosis or edema, no calf tenderness and no pedal edema NARRATIVE EXTREMITY EXAM: Examination of the base of the right thumb thumb spica splint removed there is some skin impressions from the splint no ecchymosis no laceration no deformity no apparent joint effusion x-ray reviewed old fracture with good callus in place it does extend intra-articular. Neuro: SENSORIUM/ORIENTATION: Yes oriented to person, Yes oriented to place and Yes oriented to time Skin: COMMON NORMALS: no rashes or lesions noted GENERAL SKIN EXAM: no rashes or lesions noted Course Vital Signs: Vital signs: Vital Signs Temperature 98.3 F 06/19/19 06:22 Pulse Rate 83 06/19/19 07:19 Respiratory Rate 16 06/19/19 06:22 Blood Pressure 132/72 06/19/19 07:19 Pulse Oximetry 96 06/19/19 07:19 Discharge Plan Discharge Patient Disposition: Home, Self-Care Clinical Impression: Fracture of thumb, right, closed Qualifiers: Encounter type: subsequent encounter Phalanx: proximal Fracture alignment: nondisplaced Fracture healing: with routine healing Qualified Code(s): S62.514D - Nondisplaced fracture of proximal phalanx of right thumb, subsequent encounter for fracture with routine healing Condition: Stable Prescriptions: New diclofenac sodium 75 mg tablet,delayed release (DR/EC) 75 mg PO BID PRN (Reason: pain) Qty: 20 RF: 0 No Action (DME) thumb spica splint Qty: 1 RF: 0 lamotrigine 25 mg Tablet 50 mg PO BID Qty: 120 RF: 1 trazodone 150 mg Tablet 150 mg PO BEDTIME Qty: 30 RF: 1 hydroxyzine pamoate 25 mg Capsule 25 mg PO Q8H PRN (Reason: Anxiety) Qty: 30 RF: 1 fluoxetine 20 mg Capsule 20 mg PO DAILY 30 Days Qty: 30 RF: 0 acetaminophen-codeine [Tylenol-Codeine #3] 300-30 mg tablet 1 tab PO Q6H PRN (Reason: pain) Qty: 14 RF: 0 Discharge Orders: Discharge Order (Routine); Ordered 06/19/19 Ordered By: Tariq Jacobs Referrals: Eunice Louis MD [Primary Care Provider] - Activity Restrictions/Additional Instructions: Keep appointment with Orthopaedics as scheduled on 06/24. Interventions: ED Discharge Assessment Last Done: 06/19/19 07:19 Discharge Date/Time: 06/19/19 07:21 Coding Level of Care Code ED Legal Service Specialist for Yina Alfaro
[2019-06-19] MEDS: acetaminophen-codeine 300-30mg Tablet 1 TAB PO (07:17)
[2019-06-19 07:19] VITALS: BP 132/72; PULSE 83; O2SAT 96
--- NOTE | 2019-06-24 14:38 | DCPLANNER ---
Patient did attend appointment scheduled for 06.24.19 with ortho.
== END 2019-06-19 07:21 | disposition home or self-care (01) ==
PROVIDERS: Emergency Provider Family Medicine; PCP Family Medicine
DX: S62.514A Nondisplaced fracture of proximal phalanx of right thumb, initial encounter for closed fracture (principal); X58.XXXA Exposure to other specified factors, initial encounter; I10 Essential (primary) hypertension; F17.210 Nicotine dependence, cigarettes, uncomplicated
CPT/HCPCS: 99281

== ENCOUNTER → 2019-06-24 13:38 | Outpatient (BNVA) | payer SELFPAY | PROVIDERS: PCP Family Medicine; Visit Provider Orthopaedic Surgery | DX: S62.231A Other displaced fracture of base of first metacarpal bone, right hand, initial encounter for closed fracture (principal); X58.XXXA Exposure to other specified factors, initial encounter | CPT/HCPCS: 73140 ==

== ENCOUNTER 2019-07-15 19:05 | Inpatient (IN) | payer SELFPAY ==
[2019-07-15 19:08] VITALS: RESP 16; TEMP 36.9; BMI 29.5
--- NOTE | 2019-07-15 19:13 | ECG_ITS ---
Measurements Intervals Sesser Rate: 97 P: 32 WI: 159 QRS: -6 QRSD: 92 T: 48 QT: 334 QTc: 426 SINUS RHYTHM MINIMAL VOLTAGE CRITERIA FOR LVH, CONSIDER NORMAL VARIANT [MEETS CRITERIA IN ONE OF: R(aVL), S(V1), R(V5), R(V5/V6)+S(V1)] Compared to ECG 04/22/2018 10:57:16 No significant changes Electronically Signed On 07-16-2019 14:11:54 [employer]IO REPAIRER by Aidan Weaver M.D. [email or web address]
--- NOTE | 2019-07-15 19:22 | ED_ITS ---
Entered by Chioma Tamayo, acting as scribe for Wanda Patino Jul 15, 2019 19:05 HPI - Psych General: Chief Complaint: Psychiatric Symptoms Stated Complaint: SI Time Seen by Provider: 07/15/19 19:09 Source: patient Mode of arrival: ambulatory History of Present Illness: HPI Narrative: 23 y/o male presents to the ED with complaint of suicidal thoughts. Pt states he has a plan cut himself or run out into traffic. He admits to snorting some meth today, as well. He says he came into the ER waiting room last night but never actually checked in to get help. MD complaint: suicidal ideation Onset (ago): day(s) Duration: getting worse History of same: Yes Relieving factors: none Exacerbating factors: drug use Context: recent drug abuse Associated psychiatric symptoms: depression and suicidal ideation If self harm: admits thoughts of self harm and has plan Details of plan: Pt has a plan to cut himself or run out into traffic. Review of Systems General: Reports: other (negative unless marked) Const: Denies: fever, chills, body aches, fatigue, malaise or diaphoresis Eyes: Denies: change in vision or blurry vision ENMT: Denies: throat pain, painful swallowing, hoarseness, ear pain, ear discharge, Change in hearing or nasal discharge Card: Denies: chest pain, palpitations, irregular heart rhythm, syncope, pre- syncope, shortness of breath on exertion or shortness of breath when lying down Resp: Denies: shortness of breath, productive cough, non-productive cough, wheezing, coughing up blood or chest congestion GI: Denies: abdominal pain, nausea, vomiting, vomiting blood, coffee grounds in vomit, diarrhea, constipation, cramping, blood in stool or black tarry stool : Denies: flank pain, difficulty urinating, painful urination, urinary frequency, urinary urgency, decreased urine ouput, urinary incontinence or blood in urine Musc: Denies: neck pain, back pain, extremity pain, extremity swelling, joint pain, joint swelling, joint warmth or joint stiffness Skin/Breast: Denies: rash, skin tenderness or yellow skin Neuro: Denies: headache, numbness in extremities, weakness in extremities, changes in sensation, lack of coordination, difficulty walking, dizziness, vertigo or confusion Endo: Denies: excessive thirst, tired all the time, cold intolerance, excessive sweating, flushing or hot flashes Pedro Luis/Lymph: Denies: easy bruising, easy bleeding, petechiae or enlarged lymph nodes All/Imm: Denies: hives, throat swelling, tongue swelling, facial swelling or acute wheezing PFSH ED PFSH: Social History Smoking and tobacco status: current every day smoker cigarettes Packs smoked per day: 1 Alcohol intake: current Alcohol intake frequency: holidays/special occasions only Physical Exam Const: COMMON NORMALS: oriented x3 EXAM LIMITATIONS: no altered mental status GENERAL APPEARANCE: cooperative and well developed ORIENTATION/CONSCIOUSNESS: Yes awake HENMT: COMMON NORMALS: normocephalic, head/scalp atraumatic, hearing grossly normal bilaterally, external ears normal, EAC's normal, external nose normal and moist oral mucous membranes HEAD & SCALP: normal to inspection, normocephalic and atraumatic FACE & SINUS: normal facial exam and face symmetric NOSE: external nose normal and nares normal EXTERNAL EAR: Yes external ears normal EXTERNAL AUDITORY CANAL: EAC's normal MOUTH: oral and palatal mucosa normal and tongue normal Eye: COMMON NORMALS: PERRL, EOMs intact bilaterally, conjunctivae normal and no scleral icterus GENERAL EYE: normal appearance of both eyes and normal light reflex CONJUNCTIVA: Yes conjunctivae normal SCLERA: sclerae normal CORNEA: Yes corneas normal PUPIL: Yes PERRL DIRECT OPHTHALMOSCOPY: Yes normal light reflex Neck/C-Spine: COMMON NORMALS: full ROM, no lymphadenopathy, supple, no meningeal signs and no JVD GENERAL: Yes normal visual inspection and Yes trachea midline CERVICAL SPINE: Yes cervical ROM normal Chest: COMMONS NORMALS: inspection of chest normal and palpation of chest normal Resp: COMMON NORMALS: normal respiratory effort, no retractions, no use of accessory muscles and clear to auscultation bilaterally EFFORT & INSPECTION: Yes able to speak in complete sentences AUSCULTATION: clear to auscultation bilaterally Cardio: COMMON NORMALS: no JVD, regular rate, regular rhythm, S1 normal heart sound, S2 normal heart sound, no gallops, no clicks, no murmurs and no rub JUGULAR VENOUS DISTENTION: no JVD RATE: regular rate RHYTHM: regular rhythm HEART SOUNDS: S1 normal and S2 normal GI: COMMON NORMALS: soft to palpation, non-tender, no hepatosplenomegaly and no masses INSPECTION: Yes normal to inspection PALPATION: Yes soft and Yes no hepatosplenomegaly : COMMON NORMALS: Yes no CVA tenderness BLADDER/KIDNEY EXAM: Yes no CVA tenderness Back/Pelvis: COMMON NORMALS: no CVA tenderness, thoracic and lumbar spine normal to inspection, no thoracic nor lumbar tenderness and thoraco-lumbar ROM normal Extremity: COMMON NORMALS: normal to inspection, full ROM, normal capillary refill, no joint enlargement, no clubbing, cyanosis or edema and no calf tenderness Neuro: COMMON NORMALS: oriented x3, CN's II-XII intact bilaterally, moves all extremities, no focal motor deficits and no sensory deficits noted MENINGEAL SIGNS: Yes no meningeal signs Skin: COMMON NORMALS: no rashes or lesions noted, skin turgor normal, no jaundice, no petechiae and no mottling GENERAL SKIN EXAM: no rashes or lesions noted and turgor normal MDM - Psych MDM Narrative: Medical decision making narrative: The case was reviewed with Dr. Church, he is agreeable to admission for psychiatric stabilization and treatment. Patient has been placed under 96-hour hold as he seems volatile and withdrawn and I am concerned that he is a threat to himself should he leave and he may try to do this spontaneously as he appears erratic and agitated at times. Lab Data: Labs: Lab Results 07/15/19 07/15/19 07/15/19 Range/Units 19:55 20:08 20:08 WBC 17.2 H (4.0-10.0) 10^3/ uL RBC 5.43 H (4.1-5.3) 10^6/u L Hgb 16.5 (11.7-16.6) g/dL Hct 48.3 (42.0-52.0) % MCV 89.0 (80-94) fL MCH 30.4 (28.0-34.0) pg MCHC 34.2 (30.0-36.0) g/dL RDW 12.3 (12.1-15.1) % Plt Count 360 (130-400) 10^3/c mm MPV 9.8 (7.4-10.4) fL Neut % (Auto) 74.2 % Lymph % (Auto) 18.1 % Boyle % (Auto) 6.4 % Eos % (Auto) 0.5 % Baso % (Auto) 0.3 % Neut # (Auto) 12.8 H (1.8-7.7) 10^3/u L Lymph # (Auto) 3.1 (0.8-4.8) 10^3/u L Boyle # (Auto) 1.1 H (0.2-0.9) 10^3/u L Eos # (Auto) 0.1 (0.0-0.8) 10^3/u L Baso # (Auto) 0.1 (0.0-0.1) 10^3/u L Nucleated RBC % (a uto) 0 % Nucleated RBCs # 0.0 /100WBC Sodium 135 L (136-145) mmol/L Potassium 4.3 (3.5-5.1) mmol/L Chloride 93 L (98-107) mmol/L Carbon Dioxide 23 (22-29) mmol/L Anion Gap 23.3 H (5-19) BUN 25 H (6-20) mg/dL Creatinine 0.9 (0.7-1.2) mg/dL GFR Calculation 104.6 (90-130) mL/min Glucose 65 (65-115) mg/dL Calcium 10.7 H (8.5-10.5) mg/dL Total Bilirubin 1.3 H (0.15-1.2) mg/dL AST 43 H (0-40) U/L ALT 69 H (0-41) U/L Alkaline Phosphata se 64 (40-130) IU/L Total Protein 8.9 H (6.6-8.7) g/dL Albumin 5.2 (3.5-5.2) g/dL Globulin 3.7 (1.3-4.6) g/dL TSH 1.32 (0.27-4.20) uIU/ mL Salicylates < 0.3 L (3-10) mg/dL Urine Opiates Scre en Negative (Negative) ng/mL Acetaminophen < 5.0 L (10-30) ug/mL Ur Barbiturates Sc reen Negative (Negative) ng/mL Phenytoin 0.8 L (10-20) ug/mL Valproic Acid 2.8 L (50-100) mcg/mL Carbamazepine 2.0 L (4.0-12.0) ug/mL Ur Phencyclidine S crn Negative (Negative) ng/mL Ur Amphetamines Sc reen Positive H (Negative) ng/mL U Benzodiazepines Scrn Negative (Negative) ng/mL [place] (0.6-1.2) mmol/L Urine Cocaine Scre en Negative (Negative) ng/mL U Marijuana (THC) Screen Negative (Negative) ng/mL Ethyl Alcohol < 10 (0-10) mg/dL 07/15/19 Range/Units 20:08 WBC (4.0-10.0) 10^3/ uL RBC (4.1-5.3) 10^6/u L Hgb (11.7-16.6) g/dL Hct (42.0-52.0) % MCV (80-94) fL MCH (28.0-34.0) pg MCHC (30.0-36.0) g/dL RDW (12.1-15.1) % Plt Count (130-400) 10^3/c mm MPV (7.4-10.4) fL Neut % (Auto) % Lymph % (Auto) % Boyle % (Auto) % Eos % (Auto) % Baso % (Auto) % Neut # (Auto) (1.8-7.7) 10^3/u L Lymph # (Auto) (0.8-4.8) 10^3/u L Boyle # (Auto) (0.2-0.9) 10^3/u L Eos # (Auto) (0.0-0.8) 10^3/u L Baso # (Auto) (0.0-0.1) 10^3/u L Nucleated RBC % (a uto) % Nucleated RBCs # /100WBC Sodium (136-145) mmol/L Potassium (3.5-5.1) mmol/L Chloride (98-107) mmol/L Carbon Dioxide (22-29) mmol/L Anion Gap (5-19) BUN (6-20) mg/dL Creatinine (0.7-1.2) mg/dL GFR Calculation (90-130) mL/min Glucose (65-115) mg/dL Calcium (8.5-10.5) mg/dL Total Bilirubin (0.15-1.2) mg/dL AST (0-40) U/L ALT (0-41) U/L Alkaline Phosphata se (40-130) IU/L Total Protein (6.6-8.7) g/dL Albumin (3.5-5.2) g/dL Globulin (1.3-4.6) g/dL TSH (0.27-4.20) uIU/ mL Salicylates (3-10) mg/dL Urine Opiates Scre en (Negative) ng/mL Acetaminophen (10-30) ug/mL Ur Barbiturates Sc reen (Negative) ng/mL Phenytoin (10-20) ug/mL Valproic Acid (50-100) mcg/mL Carbamazepine (4.0-12.0) ug/mL Ur Phencyclidine S crn (Negative) ng/mL Ur Amphetamines Sc reen (Negative) ng/mL U Benzodiazepines Scrn (Negative) ng/mL [place] 0.1 L (0.6-1.2) mmol/L Urine Cocaine Scre en (Negative) ng/mL U Marijuana (THC) Screen (Negative) ng/mL Ethyl Alcohol (0-10) mg/dL EKG Data^: EKG 1: Attestation: I personally reviewed and interpreted this EKG as follows: EKG interpretation date: 07/15/19 EKG interpretation time: 19:46 Interpretation: Normal sinus rhythm at 97 beats a minute, LVH, no acute ST or T wave changes, normal QTC. Discharge Plan Discharge Patient Disposition: Admitted As Inpatient Admit Provider: Bradly Church Clinical Impression: Suicidal ideation, Depressive disorder Condition: Stable Discharge Date/Time: 07/15/19 22:10 Coding Level of Care Code ED Site Engineer for Chg Fwd Exam Comprehensive The documentation recorded by the Roni valladares Ashley, accurately reflects the service I personally performed and the decisions made by Carey lopez Eli N Jul 15, 2019 19:05
[2019-07-15] MEDS: LORazepam 1 mg Tablet PO (19:36)
[2019-07-15 20:21] LABS: Basophils # 0.1 10^3/uL (0.0-0.1); Basophils % 0.3 %; Eosinophils # 0.1 10^3/uL (0.0-0.8); Eosinophils % 0.5 %; Hematocrit 48.3 % (42.0-52.0); Hemoglobin 16.5 g/dL (11.7-16.6); Lymphocytes # 3.1 10^3/uL (0.8-4.8); Lymphocytes % 18.1 %; Mean Corpuscular HGB Conc 34.2 g/dL (30.0-36.0); Mean Corpuscular Hemoglobin 30.4 pg (28.0-34.0); Mean Platelet Volume 9.8 fL (7.4-10.4); Monocytes # 1.1 10^3/uL (0.2-0.9); Monocytes % 6.4 %; Neutrophils # 12.8 10^3/uL (1.8-7.7); Neutrophils % 74.2 %; Nucleated Red Blood Cells % 0 %; Platelet Count 360 10^3/cmm (130-400); Red Blood Count 5.43 10^6/uL (4.1-5.3); Red Cell Distribution Width 12.3 % (12.1-15.1); White Blood Count 17.2 10^3/uL (4.0-10.0)
[2019-07-15 20:38] LABS: Lithium 0.1 mmol/L (0.6-1.2)
[2019-07-15 20:46] LABS: Alanine Aminotransferase 69 U/L (0-41); Albumin Level 5.2 g/dL (3.5-5.2); Alkaline Phosphatase 64 IU/L (40-130); Anion Gap 23.3 (5-19); Aspartate Amino Transferase 43 U/L (0-40); Blood Urea Nitrogen 25 mg/dL (6-20); Calcium 10.7 mg/dL (8.5-10.5); Carbon Dioxide 23 mmol/L (22-29); Chloride 93 mmol/L (98-107); Creatinine Clr Calc Pharmacy 142.1102; Globulin 3.7 g/dL (1.3-4.6); Glomerular Filtration Rate 104.6 mL/min (90-130); Glucose 65 mg/dL (65-115); Phenytoin Dilantin 0.8 ug/mL (10-20); Potassium 4.3 mmol/L (3.5-5.1); Sodium 135 mmol/L (136-145); Thyroid Stimulating Hormone 1.32 uIU/mL (0.27-4.20); Total Bilirubin 1.3 mg/dL (0.15-1.2); Total Protein 8.9 g/dL (6.6-8.7); Valproic Acid Level 2.8 mcg/mL (50-100)
[2019-07-15 20:49] LABS: Acetaminophen < 5.0 ug/mL (10-30); Alcohol Level < 10 mg/dL (0-10); Salicylate < 0.3 mg/dL (3-10)
[2019-07-15 21:40] LABS: Amphetamines Screen Urine Positive (Negative); Barbiturates Screen Urine Negative (Negative); Benzodiazepines Screen Urine Negative (Negative); Cocaine Screen Urine Negative (Negative); Opiate Screen Urine Negative (Negative); PCP Screen Urine Negative (Negative); THC Screen Urine Negative (Negative)
[2019-07-15 22:02] VITALS: BP 131/100; PULSE 108; RESP 18; O2SAT 97
[2019-07-16 00:30] VITALS: BP 129/73; PULSE 117; RESP 18; TEMP 37.2; O2SAT 97
[2019-07-16 05:57] VITALS: RESP 16
--- NOTE | 2019-07-16 05:57 | PC.NURSE ---
Pt refused vitals. Respirations were taken.
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
[2019-07-16 14:00] VITALS: BP 114/71; PULSE 68; RESP 20; TEMP 36.7; O2SAT 95
[2019-07-16 18:09] LABS: Calcium 10.1 mg/dL (8.5-10.5); Parathyroid Hormone 31.6 pg/mL (15-65)
[2019-07-16] MEDS: nicotine 2 mg Gum BUCCAL (19:59)
[2019-07-16 21:42] VITALS: BP 109/70; PULSE 69; RESP 18; TEMP 37; O2SAT 98
[2019-07-16] MEDS: acetaminophen 325 mg Tablet 650 MG PO (21:45)
[2019-07-17 06:00] VITALS: BP 107/56; PULSE 61; RESP 17; TEMP 36.7; O2SAT 96
--- NOTE | 2019-07-17 09:55 | PM.NPN ---
Subjective NPU Subjective: Interval history: Patient states that he is here because I'm homeless, jobless, and no contact with my kids. I have PTSD and flashbacks. However he denies suicidal or homicidal ideation. He denies the presence of auditory or visual hallucinations. He is looking forward to a job interview that he has at Tuesdays on Friday. However he has no place to go until then. Mental Status Exam MSE Comments: Discharge Mental Status Exam: Appearance: hygiene is good; no gross neurological deficits., gait is unremarkable; AIMS=0 Speech: Speech is of normal rate and rhythm and easily understood. Thought processes: Thought processes are abstract. Judgment is adequate for safety. Associations: intact Psychotic processes: There is no indication of guarding or paranoia. There is no attention to the internal stimuli. Auditory and visual hallucinations are denied. Judgment: Insight is fair. Problem solving skills are adequate for safety. Orientation: The patient is oriented to person, place time and situation. Memory: no deficits noted in immediate, intermediate, or remote spheres. Attention: The patient is alert and interpersonally engaged. Language: Verbalizations are coherent. Fund of knowledge: Fund of knowledge is adequate. Affect/Mood: Affect is consistent with a euthymic mood. denied suicidal ideation Affective range is appropriate. Psychosis: perception unimpaired except through cognitive distortion; reality testing intact. Vitals/I&O/Wt Last Vital Signs Temp 98.0 F 07/17/19 06:00 Pulse 61 07/17/19 06:00 Resp 17 07/17/19 06:00 BP 107/56 07/17/19 06:00 Pulse Ox 96 07/17/19 06:00 Weight last 48 hrs Weight 90.718 kg Data NPU : 07/15/19 20:08 07/15/19 20:08 A&P Additional A&P Information Diagnosis: Adjustment disorder with disturbance of mood Assessment: It appears that the patient is utilizing in the hospital as a crisis intervention spot where he goes when he cannot figure out solutions to his homelessness and is feeling despondent. Due to the psychiatric conditions and treatment listed in the Assessment and Plan - the patient requires continued hospitalization. Will provide a safe and therapeutic environment for patient.. Will continue inpatient treatment to allow for medication adjustment and monitoring. Will continue q15 min safety checks. Will Restart his Lasix discharge medications of fluoxetine, trazodone, and hydroxyzine Monitor patient's mood, sleep, appetite, and behavior closely. Encourage patient to participate in individual and group therapeutic sessions on the virk. Estimated length of stay 3 days The expected benefits and potential side effects of patient's psychiatric medications were discussed with the patient. The patient understands and consents to treatment. CRITERIA FOR DISCHARGE: stable on medications and no longer an imminent threat to self or others Involuntary Hold Information 96 Hour Hold: 96 Hour Involuntary Admission: Yes 96 Hour Hold Ending Date: 07/21/19 96 Hour Hold Ending Time: 19:09 Attestations NPU Medical Necessity Statement*: Patient remained in the hospital another 2 nights until arrangements can be made for housing and he can go to his jobInterview. Coding Level of Care Code Acute Factory Maintenance Manager for Yina Alfaro
[2019-07-17] MEDS: fluoxetine 20 mg Capsule PO (10:06)
[2019-07-17 13:40] VITALS: BP 137/86; PULSE 64; RESP 18; TEMP 36.9
[2019-07-17] MEDS: nicotine 2 mg Gum BUCCAL (14:18)
[2019-07-17] MEDS: acetaminophen 325 mg Tablet 650 MG PO (15:55)
[2019-07-17] MEDS: trazodone 100 mg Tablet PO (21:20)
[2019-07-17 22:00] VITALS: BP 132/55; PULSE 65; RESP 18; TEMP 37; O2SAT 97
[2019-07-17] MEDS: trazodone 50 mg Tablet PO (22:01)
[2019-07-18 06:00] VITALS: BP 102/58; PULSE 64; RESP 16; TEMP 36.5; O2SAT 97
[2019-07-18] MEDS: fluoxetine 20 mg Capsule PO (08:37)
--- NOTE | 2019-07-18 10:35 | PM.NPN ---
Subjective NPU Subjective: Interval history: The patient and I reviewed his recurring admissions and the deleterious impact of methamphetamine on his life, his health, and indeed even his life expectancy. He has filled out an application for [facility] and is now desirous of inpatient rehab. He knows that his psychosocial life is a mess. Medications: Reviewed: Yes Medication Review Details: Patient indicates that he was on lamotrigine 50 mg twice daily for mood stabilization. He would like to go back on it, having been off it for 2 days. I consulted with the pharmacist, who felt that it would be relatively low risk to reinstate the patient's lamotrigine at that dose starting today. We will get 2 doses in today. Mental Status Exam MSE Comments: Appearance: hygiene is good; no gross neurological deficits., gait is unremarkable; AIMS=0 Speech: Speech is of normal rate and rhythm and easily understood. Thought processes: Thought processes are abstract. Judgment is adequate for safety. Associations: intact Psychotic processes: There is no indication of guarding or paranoia. There is no attention to the internal stimuli. Auditory and visual hallucinations are denied. Judgment: Insight is fair. Problem solving skills are adequate for safety. Orientation: The patient is oriented to person, place time and situation. Memory: no deficits noted in immediate, intermediate, or remote spheres. Attention: The patient is alert and interpersonally engaged. Language: Verbalizations are coherent. Fund of knowledge: Fund of knowledge is adequate. Affect/Mood: Affect is consistent with a euthymic mood. denied suicidal ideation Affective range is appropriate. Psychosis: perception unimpaired except through cognitive distortion; reality testing intact. Vitals/I&O/Wt Last Vital Signs Temp 97.7 F 07/18/19 06:00 Pulse 64 07/18/19 06:00 Resp 16 07/18/19 06:00 BP 102/58 07/18/19 06:00 Pulse Ox 97 07/18/19 06:00 Weight last 48 hrs Weight 200 lb 6.4 oz Data NPU : 07/15/19 20:08 07/15/19 20:08 A&P Additional A&P Information Diagnosis: Adjustment disorder with disturbance of mood Assessment: It appears that the patient is utilizing in the hospital as a crisis intervention spot where he goes when he cannot figure out solutions to his homelessness and is feeling despondent. 1. CBT re pros and cons of recovery. 2. Encourage individual, group and milieu therapy. 3. Continue every 15 minute checks for safety. 4. Will work with social work to pursue inpatient rehab. Involuntary Hold Information 96 Hour Hold: 96 Hour Involuntary Admission: Yes 96 Hour Hold Ending Date: 07/21/19 96 Hour Hold Ending Time: 19:09 Attestations NPU Medical Necessity Statement*: The patient is at great risk of relapse. I anticipate 4-7 midnights additional stay. I am hopeful that we can sign him in voluntarily. Time Spent in Patient Care: Greater than 35 minutes (>than 50% of time spent in counselling and/or direct pt care on unit). Coding Level of Care Code Acute Preventive Maintenance Coordinator for Yina Alfaro
[2019-07-18] MEDS: lamoTRIgine 25 mg Tablet 50 MG PO ×2 (10:47→17:30)
[2019-07-18 14:00] VITALS: BP 126/80; PULSE 69; RESP 18; TEMP 36.5; O2SAT 97
[2019-07-18] MEDS: nicotine 2 mg Gum BUCCAL (20:16)
[2019-07-18] MEDS: trazodone 100 mg Tablet PO (20:17)
[2019-07-18 21:55] VITALS: BP 104/63; PULSE 72; RESP 18; TEMP 36.8; O2SAT 96
[2019-07-19 06:00] VITALS: BP 103/63; PULSE 63; RESP 17; TEMP 36.6; O2SAT 96
[2019-07-19] MEDS: lamoTRIgine 25 mg Tablet 50 MG PO ×2 (09:19→17:41)
[2019-07-19] MEDS: fluoxetine 20 mg Capsule PO (09:19)
[2019-07-19] MEDS: nicotine 21 mg Patch 1 PATCH TRANSDERMA (13:18)
[2019-07-19] MEDS: acetaminophen 325 mg Tablet 650 MG PO ×2 (13:19→20:16)
[2019-07-19 14:00] VITALS: BP 122/76; PULSE 64; RESP 18; TEMP 36.6; O2SAT 95
--- NOTE | 2019-07-19 16:33 | P.PN_ITS ---
Subjective NPU Subjective: Interval history: The patient is feeling much more comfortable now. He says she will be safe on the unit. He is waiting for a bed at [facility]. He agrees to sign in voluntarily and we will rescind his 96-hour hold. Medications: Reviewed: Yes Medication Review Details: The patient presently is on Lamictal 50 mg p.o. twice daily trazodone 100 mg p.o. at bedtime as well as Vistaril 25 mg p.o. 4 times daily as needed for anxiety. Mental Status Exam MSE Comments: Patient presents today and in very good spirits. He is clean and well-groomed. Mood is upbeat and he is eager to pursue recovery. Affect is appropriate. Thought processes are integrated and free of any racing, blocking or looseness of association. There is no evidence of psychosis, such as but not limited to hallucinations, delusions or ideas of reference. Speech is of normal rate and volume without aprosody, dysarthria or pressure. Patient denies suicidal or homicidal ideation, plan or intent. Cognitive functions, including reason, orientation, memory, judgment and insight appear to be intact. There are no behavioral oddities. Vitals/I&O/Wt Last Vital Signs Temp 97.8 F 07/19/19 14:00 Pulse 64 07/19/19 14:00 Resp 18 07/19/19 14:00 BP 122/76 07/19/19 14:00 Pulse Ox 95 07/19/19 14:00 Weight last 48 hrs Weight 200 lb 6.4 oz Data NPU : 07/15/19 20:08 07/15/19 20:08 A&P Additional A&P Information Diagnosis: Adjustment disorder with disturbance of mood. Methamphetamine abuse disorder. Assessment: It appears that the patient is utilizing in the hospital as a crisis intervention spot where he goes when he cannot figure out solutions to his homelessness and is feeling despondent. 1. CBT re pros and cons of recovery. 2. Encourage individual, group and milieu therapy. 3. Continue every 15 minute checks for safety. 4. Will work with social work to pursue inpatient rehab. Involuntary Hold Information 96 Hour Hold: 96 Hour Involuntary Admission: Yes 96 Hour Hold Ending Date: 07/21/19 96 Hour Hold Ending Time: 19:09 Attestations NPU Medical Necessity Statement*: I anticipate 3-4 midnights. Time Spent in Patient Care: Greater than 35 minutes (>than 50% of time spen t in counselling and/or direct pt care on unit) . Coding Level of Care Code Acute General Laborer for Yina Alfaro
[2019-07-19 20:19] VITALS: BP 122/78; PULSE 64; RESP 18; TEMP 36.6; O2SAT 95
[2019-07-19] MEDS: trazodone 100 mg Tablet PO (21:20)
[2019-07-19] MEDS: trazodone 50 mg Tablet PO (22:01)
[2019-07-19 22:04] VITALS: BP 150/81; PULSE 87; RESP 22; TEMP 37.1; O2SAT 97
[2019-07-20 06:00] VITALS: BP 109/58; PULSE 59; RESP 18; TEMP 36.4; O2SAT 96
[2019-07-20 08:51] VITALS: BP 109/58; PULSE 59; RESP 18; TEMP 36.4; O2SAT 96
[2019-07-20] MEDS: fluoxetine 20 mg Capsule PO (08:55)
[2019-07-20] MEDS: lamoTRIgine 25 mg Tablet 50 MG PO ×2 (08:55→17:11)
[2019-07-20] MEDS: nicotine 21 mg Patch 1 PATCH TRANSDERMA (14:16)
--- NOTE | 2019-07-20 15:20 | P.PN_ITS ---
Subjective NPU Subjective: Interval history: The patient reports his enjoying life without substance abuse. He is eager to find a bed at [facility]. We await word from the unit senior buyer planner. Medications: Reviewed: Yes Medication Review Details: Current Medications Acetaminophen (Tylenol) 650 mg PO Q4H PRN PRN Reason: MILD PAIN Last Admin: 07/19/19 20:16 Dose: 650 mg Documented by: Benztropine Mesylate (Cogentin) 1 mg PO BID PRN PRN Reason: Mild Extrapyramidal symptoms Camphor/Menthol/Phenol (Blistex) 1 applic TOPICAL Q1H PRN PRN Reason: DRYNESS Diphenhydramine HCl (Benadryl) 50 mg IM ONCE PRN PRN Reason: Severe Extrapyramidal Symptoms Diphenhydramine HCl (Benadryl) 50 mg IM Q4H PRN PRN Reason: Severe Aggression Doxepin HCl (Sinequan) 50 mg PO BEDTIME [facility] Fluoxetine HCl (Prozac) 20 mg PO DAILY [facility] Last Admin: 07/20/19 08:55 Dose: 20 mg Documented by: Haloperidol (Haldol) 5 mg PO Q4H PRN PRN Reason: AGITATION Haloperidol Lactate (Haldol Inj) 5 mg IM Q4H PRN PRN Reason: Severe Aggression Hydroxyzine Pamoate (Vistaril) 50 mg PO Q6H PRN PRN Reason: ANXIETY Hydroxyzine Pamoate (Vistaril) 25 mg PO QID PRN PRN Reason: ANXIETY Lamotrigine (Lamictal) 50 mg PO BID [facility] Last Admin: 07/20/19 08:55 Dose: 50 mg Documented by: Loperamide HCl (Imodium Capsule) 2 mg PO Q6H PRN PRN Reason: DIARRHEA Nicotine (Nicoderm 21 Mg Patch) 1 patch TRANSDERMA DAILY PRN PRN Reason: NICOTINE WITHDRAWAL Last Admin: 07/20/19 14:16 Dose: 1 patch Documented by: Nicotine Polacrilex (Nicorette) 2 mg BUCCAL Q2H PRN PRN Reason: NICOTINE WITHDRAWAL Last Admin: 07/18/19 20:16 Dose: 2 mg Documented by: Olanzapine (Zyprexa Zydis) 5 mg PO Q4H PRN PRN Reason: Agitation/Psychosis Ondansetron HCl (Zofran) 4 mg PO Q6H PRN PRN Reason: NAUSEA AND VOMITING Mental Status Exam MSE Comments: Patient presents again in good spirits. He is clean and well-groomed. Mood is upbeat and he is eager to pursue recovery. Affect is appropriate. Thought processes are integrated and free of any racing, blocking or looseness of association. There is no evidence of psychosis, such as but not limited to hallucinations, delusions or ideas of reference. Speech is of normal rate and volume without aprosody, dysarthria or pressure. Patient denies suicidal or homicidal ideation, plan or intent. Cognitive functions, including reason, orientation, memory, judgment and insight appear to be intact. There are no behavioral oddities. Vitals/I&O/Wt Last Vital Signs Temp 97.6 F 07/20/19 08:51 Pulse 59 L 07/20/19 08:51 Resp 18 07/20/19 08:51 BP 109/58 07/20/19 08:51 Pulse Ox 96 07/20/19 08:51 Data NPU : 07/15/19 20:08 07/15/19 20:08 Involuntary Hold Information 96 Hour Hold: 96 Hour Involuntary Admission: No 96 Hour Hold Ending Date: 07/21/19 96 Hour Hold Ending Time: 19:09 Attestations NPU Medical Necessity Statement*: We will await a bed at rehab program. I anticipate 4-6 midnights Time Spent in Patient Care: Greater than 35 minutes (>than 50% of time spent in counselling and/or direct pt care on unit) . Coding Level of Care Code Acute Marketing Reporting Analyst for iYna Alfaro
[2019-07-20 20:00] VITALS: BP 109/69; PULSE 79; RESP 19; TEMP 36.8; O2SAT 97
[2019-07-20] MEDS: doxepin 50 mg Capsule PO (21:52)
[2019-07-20] MEDS: acetaminophen 325 mg Tablet 650 MG PO (21:52)
[2019-07-20] MEDS: nicotine 2 mg Gum BUCCAL (21:54)
[2019-07-21 06:00] VITALS: BP 110/67; PULSE 57; RESP 16; TEMP 36.5; O2SAT 96
[2019-07-21] MEDS: lamoTRIgine 25 mg Tablet 50 MG PO ×2 (08:38→17:07)
[2019-07-21] MEDS: fluoxetine 20 mg Capsule PO (08:39)
[2019-07-21] MEDS: nicotine 2 mg Gum BUCCAL ×2 (11:18→21:11)
[2019-07-21 14:00] VITALS: BP 138/85; PULSE 83; RESP 18; TEMP 36.6; O2SAT 96
[2019-07-21] MEDS: nicotine 21 mg Patch 1 PATCH TRANSDERMA (14:31)
[2019-07-21] MEDS: acetaminophen 325 mg Tablet 650 MG PO (14:32)
--- NOTE | 2019-07-21 16:09 | P.PN_ITS ---
Subjective NPU Subjective: Interval history: The patient and I spent some time examining the difference between life with and without recovery. He professes not to know what that might be like. We look at it from various facets and he finally conceives that he has to stop hanging around the people from home he gets his methamphetamine. We are still looking for inpatient rehab placement. Medications: Reviewed: Yes Medication Review Details: Current Medications Acetaminophen (Tylenol) 650 mg PO Q4H PRN PRN Reason: MILD PAIN Last Admin: 07/21/19 14:32 Dose: 650 mg Documented by: Benztropine Mesylate (Cogentin) 1 mg PO BID PRN PRN Reason: Mild Extrapyramidal symptoms Camphor/Menthol/Phenol (Blistex) 1 applic TOPICAL Q1H PRN PRN Reason: DRYNESS Diphenhydramine HCl (Benadryl) 50 mg IM ONCE PRN PRN Reason: Severe Extrapyramidal Symptoms Diphenhydramine HCl (Benadryl) 50 mg IM Q4H PRN PRN Reason: Severe Aggression Doxepin HCl (Sinequan) 50 mg PO BEDTIME [facility] Last Admin: 07/20/19 21:52 Dose: 50 mg Documented by: Fluoxetine HCl (Prozac) 20 mg PO DAILY [facility] Last Admin: 07/21/19 08:39 Dose: 20 mg Documented by: Haloperidol (Haldol) 5 mg PO Q4H PRN PRN Reason: AGITATION Haloperidol Lactate (Haldol Inj) 5 mg IM Q4H PRN PRN Reason: Severe Aggression Hydroxyzine Pamoate (Vistaril) 50 mg PO Q6H PRN PRN Reason: ANXIETY Hydroxyzine Pamoate (Vistaril) 25 mg PO QID PRN PRN Reason: ANXIETY Lamotrigine (Lamictal) 50 mg PO BID [facility] Last Admin: 07/21/19 08:38 Dose: 50 mg Documented by: Loperamide HCl (Imodium Capsule) 2 mg PO Q6H PRN PRN Reason: DIARRHEA Nicotine (Nicoderm 21 Mg Patch) 1 patch TRANSDERMA DAILY PRN PRN Reason: NICOTINE WITHDRAWAL Last Admin: 07/21/19 14:31 Dose: 1 patch Documented by: Nicotine Polacrilex (Nicorette) 2 mg BUCCAL Q2H PRN PRN Reason: NICOTINE WITHDRAWAL Last Admin: 07/21/19 11:18 Dose: 2 mg Documented by: Olanzapine (Zyprexa Zydis) 5 mg PO Q4H PRN PRN Reason: Agitation/Psychosis Ondansetron HCl (Zofran) 4 mg PO Q6H PRN PRN Reason: NAUSEA AND VOMITING Mental Status Exam MSE Comments: Patient presents again in good spirits. He is clean and well- groomed. Mood is more pensive and affect is subdued. Thought processes are integrated and free of racing, blocking or looseness of association. There is no evidence of psychosis, such as but not limited to hallucinations, delusions or ideas of reference. Speech is of normal rate and volume without aprosody, dysarthria or pressure. Patient denies suicidal or homicidal ideation, plan or intent. Cognitive functions, including reason, orientation, memory, judgment and appears to be intact . . . if he chooses to exercise it. I have revised my assessment of insight as he professes to be clueless about the process of addiction. There are no behavioral oddities. Vitals/I&O/Wt Last Vital Signs Temp 97.9 F 07/21/19 14:00 Pulse 83 07/21/19 14:00 Resp 18 07/21/19 14:00 BP 138/85 07/21/19 14:00 Pulse Ox 96 07/21/19 14:00 Data NPU : 07/15/19 20:08 07/15/19 20:08 A&P Additional A&P Information Diagnosis: Adjustment disorder with disturbance of mood. Methamphetamine abuse disorder. Assessment: It appears that the patient is utilizing in the hospital as a crisis intervention spot where he goes when he cannot figure out solutions to his homelessness and is feeling despondent. 1. CBT re pros and cons of recovery. 2. Encourage individual, group and milieu therapy. 3. Continue every 15 minute checks for safety. 4. Will work with social work to pursue inpatient rehab. Involuntary Hold Information 96 Hour Hold: 96 Hour Involuntary Admission: No 96 Hour Hold Ending Date: 07/21/19 96 Hour Hold Ending Time: 19:09 Attestations NPU Medical Necessity Statement*: I anticipate 4-5 midnights additional hospitalization Time Spent in Patient Care: Greater than 35 minutes (>than 50% of time spent in counselling and/or direct pt care on unit) . Coding Level of Care Code Acute Medical Transcription Radiology for Yina Alfaro
[2019-07-21] MEDS: doxepin 50 mg Capsule PO (21:07)
[2019-07-21 21:25] VITALS: BP 134/79; PULSE 73; RESP 18; TEMP 37; O2SAT 97
[2019-07-22 06:00] VITALS: BP 99/63; PULSE 58; RESP 16; TEMP 36.7; O2SAT 97
[2019-07-22] MEDS: fluoxetine 20 mg Capsule PO ×2 (08:15→17:32)
[2019-07-22] MEDS: lamoTRIgine 25 mg Tablet 50 MG PO ×2 (08:15→17:32)
[2019-07-22 14:00] VITALS: BP 155/93; PULSE 76; RESP 18; TEMP 37.1; O2SAT 96
[2019-07-22] MEDS: nicotine 21 mg Patch 1 PATCH TRANSDERMA (14:40)
--- NOTE | 2019-07-22 17:05 | PM.NPN ---
Subjective NPU Subjective: Interval history: Umang presents today reporting that he realizes that he needs to get himself focused on what is next. He is meeting with the social workers and look at what his options are. He reports that he did get kicked out of [facility]. So that is likely not an option. Going back to [place] he reports is not an option because his children are here and he wants to stay connected to them. He ultimately wants to get into a rehab and then get back to his life and working and focusing on improving himself in his family. He reports he is eating and sleeping okay.He endorsed continued depression but denied active suicidality at this time. We discussed the risks, benefits and alternatives of increasing his Prozac and he understood and agreed to proceed as is documented in this note. Mental Status Exam MSE Comments: This is an obese white male with adequate dress, grooming and eye contact. No abnormal movements. Cooperative with exam in no acute distress. Speech was normal rate and volume. Mood described as depressed, affect congruent. Thought process organized. Thought content: Patient denied any suicidal or homicidal ideations, there were no delusions reported or noted, he denied any auditory visual hallucination. Attention and concentration were intact and memory appeared reliable but none were formally tested. He is alert and oriented x3. Insight and judgment are improving. Vitals/I&O/Wt Last Vital Signs Temp 98.8 F 07/22/19 14:00 Pulse 76 07/22/19 14:00 Resp 18 07/22/19 14:00 BP 155/93 07/22/19 14:00 Pulse Ox 96 07/22/19 14:00 Data NPU : 07/15/19 20:08 07/15/19 20:08 A&P Additional A&P Information This is a 23-year-old white male with significant history of depression and addiction who presents back on his medications with referrals to rehab limited to his lack of insurance with some ongoing depression. 1. Continue current medication. Except: 2. Increase Prozac to 40 mg p.o. every morning. 3. Encourage individual, group and milieu therapy. 4. Continue to 15-minute checks for safety. 5. Work on appropriate aftercare from the standpoint of possibilities for nursing home while he awaits a rehab bed. Involuntary Hold Information 96 Hour Hold: 96 Hour Involuntary Admission: No 96 Hour Hold Ending Date: 07/21/19 96 Hour Hold Ending Time: 19:09 Attestations NPU Medical Necessity Statement*: Inpatient hospitalization is medically necessary and the clinically appropriate intervention at this time. We will monitor medications and make changes as indicated. Likely length of stay 1 to 3 days. Coding Level of Care Code Acute Oracle Database Manager for Ynia Alfaro
[2019-07-22] MEDS: doxepin 50 mg Capsule PO (21:37)
[2019-07-22] MEDS: nicotine 2 mg Gum BUCCAL (21:43)
[2019-07-22 22:00] VITALS: BP 132/78; PULSE 86; RESP 18; TEMP 37.2; O2SAT 96
[2019-07-23] MEDS: acetaminophen 325 mg Tablet 650 MG PO (00:43)
[2019-07-23 06:00] VITALS: BP 93/51; PULSE 63; RESP 17; TEMP 36.6; O2SAT 96
[2019-07-23] MEDS: lamoTRIgine 25 mg Tablet 50 MG PO (08:08)
[2019-07-23] MEDS: fluoxetine 20 mg Capsule 40 MG PO (08:08)
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
[2019-07-23 13:11] VITALS: BP 93/51; PULSE 63; RESP 17; TEMP 36.6; O2SAT 96
== END 2019-07-23 14:10 | disposition home or self-care (01) | DRG 881 ==
LOC: ER 19:55 → NP 21:59
PROVIDERS: Admitting Provider Psychiatry & Neurology Psychiatry; Emergency Provider Emergency Medicine; Visit Provider Psychiatry & Neurology Psychiatry
DX: F43.21 Adjustment disorder with depressed mood (principal); F15.20 Other stimulant dependence, uncomplicated; F32.9 Major depressive disorder, single episode, unspecified; F41.9 Anxiety disorder, unspecified; F17.210 Nicotine dependence, cigarettes, uncomplicated; E66.9 Obesity, unspecified; F12.10 Cannabis abuse, uncomplicated; F43.10 Post-traumatic stress disorder, unspecified; E83.52 Hypercalcemia; Z68.29 Body mass index [BMI] 29.0-29.9, adult; Z59.0 Homelessness; Z79.51 Long term (current) use of inhaled steroids; Z79.899 Other long term (current) drug therapy
CPT/HCPCS: 12345; 36415; 80053; 80156; 80164; 80178; 80185; 80307; 82310; 83970; 84443; 85025; 93005; 99284

== ENCOUNTER 2020-10-08 20:15 | Emergency (ER) | payer SELFPAY ==
[2020-10-08 20:19] VITALS: BP 150/97; PULSE 101; RESP 18; TEMP 36.8; O2SAT 98; BMI 29.5
[2020-10-08] MEDS: lidocaine 1% INJ 20 mL INTRADERMA (20:30)
--- NOTE | 2020-10-08 21:11 | W.ED.WOUNDLC ---
HPI - Wound/Laceration General: Chief Complaint: Wound/Laceration Stated Complaint: hand laceration Time Seen by Provider: 10/08/20 20:24 History of Present Illness: HPI narrative: Patient has 3 lacerations to right hand after he put it through a glass window in a door this evening. This happened by accident. Patient has a cut to his pinky finger to his middle finger and then he has a deep laceration to his right index finger and he cannot flex right index finger. Onset (ago): minute(s) Location: other Extremity Location: Right: hand Place: home Patient tetanus UTD: Yes Context: accidental Associated symptoms: Reports no associated symptoms; Denies chills, fever(s), nausea or vomiting Review of Systems Const: Denies: fever(s), chills or body aches Eyes: Denies: change in vision or blurry vision ENMT: Denies: throat pain or nasal congestion Card: Denies: chest pain or dyspnea on exertion Resp: Denies: dyspnea, productive cough or non-productive cough GI: Denies: abdominal pain, nausea or vomiting : Denies: difficulty urinating Musc: Denies: extremity pain Skin/Breast: Reports: other (Lacerations to the right hand after punching through a plate glass door thi); Denies: rash Neuro: Denies: headache(s) Psych: Denies: anxiety or depression Pedro Luis/Lymph: Denies: easy bruising PFS ED PFSH: Medical History (Updated 07/24/19 @ 00:00 by ) Chronic back pain Depression Heart murmur Hemoptysis Hepatitis History of suicidal ideation HTN (hypertension) Leukocytosis Pharyngitis Tension type headache Tonsillitis Surgical History History of circumcision Social History Smoking and tobacco status: current every day smoker cigarettes Packs smoked per day: 1 Alcohol intake: current Alcohol intake frequency: holidays/special occasions only Physical Exam Const: COMMON NORMALS: no acute distress Psych: COMMON NORMALS: mental status grossly normal Skin: OTHER: Right hand has a large irregular stellate type laceration to the right base of the pinky has good range of motion pinky good neurovascular status. Right middle finger has a small laceration of the base on the palmar surface with slight oozing of blood has full range of motion to the finger. Right index finger has a deep laceration from the medial to lateral border on the palmar side has oozing of blood patient has good sensation of the finger but cannot flex the finger at all can extend it without difficulty. Course Vital Signs: Vital signs: Vital Signs Temperature 98.2 F 10/08/20 20:19 Pulse Rate 101 H 10/08/20 20:19 Respiratory Rate 18 10/08/20 20:19 Blood Pressure 150/97 10/08/20 20:19 Pulse Oximetry 98 10/08/20 20:19 Discharge Plan Discharge Prescriptions: No Action (DME) thumb spica splint Qty: 1 RF: 0 tramadol 50 mg tablet 50 mg PO Q6H PRN (Reason: pain) Qty: 15 RF: 0 lamotrigine 25 mg Tablet 50 mg PO BID 30 Days Qty: 120 RF: 1 hydroxyzine pamoate 25 mg Capsule 25 mg PO QID PRN (Reason: Anxiety) 30 Days Qty: 120 RF: 1 fluoxetine 40 mg capsule 40 mg PO DAILY 30 Days Qty: 30 RF: 1 doxepin 50 mg Capsule 50 mg PO BEDTIME 30 Days Qty: 30 RF: 1 Coding Level of Care Code ED Procurement Analyst for Yina Alfaro
[2020-10-08] MEDS: cephALEXin 500 mg Capsule PO (21:18)
[2020-10-08] MEDS: TRAMadol 50 mg Tablet PO (21:18)
--- NOTE | 2020-10-08 21:51 | PC.NURSE ---
Pt R hand cleaned and splinted.
== END 2020-10-08 21:53 | disposition home or self-care (01) ==
PROVIDERS: Emergency Provider Nurse Practitioner Family
DX: S61.216A Laceration without foreign body of right little finger without damage to nail, initial encounter (principal); S61.212A Laceration without foreign body of right middle finger without damage to nail, initial encounter; S61.210A Laceration without foreign body of right index finger without damage to nail, initial encounter; W25.XXXA Contact with sharp glass, initial encounter; I10 Essential (primary) hypertension; F17.210 Nicotine dependence, cigarettes, uncomplicated
CPT/HCPCS: 99283

== ENCOUNTER 2020-12-24 20:32 | Inpatient (IN) | payer SELFPAY ==
[2020-12-24 20:45] VITALS: BP 161/95; PULSE 88; RESP 16; TEMP 36.7; O2SAT 94; BMI 29.5
--- NOTE | 2020-12-24 21:11 | ED_ITS ---
HPI - Psych General: Chief Complaint: Psychiatric Symptoms Stated Complaint: SI Time Seen by Provider: 12/24/20 21:11 History of Present Illness: HPI Narrative: 24-year-old male patient [facility] with complaints of suicidal thoughts and ideation. Patient has what he states is no self worth. Patient has held a gun to his mouth within the last 2 weeks at times feeling the need to shoot himself. Patient reports the use of methamphetamines and marijuana. Patient at this time does not have a job. Patient does have 2 children. Patient comes in seeking treatment and assistance due to his suicidal thoughts. Patient reports his last use of methamphetamines was 2 days ago Associated symptoms: Reports suicidal ideation Review of Systems General: Reports: 10 or more systems reviewed and unremarkable except in HPI and below Psych: Reports: suicidal ideation [facility] ED PFSH: Medical History (Updated 12/24/20 @ 23:19 by DMITRIY Pham) Chronic back pain Depression Heart murmur Hemoptysis Hepatitis History of suicidal ideation HTN (hypertension) Leukocytosis Pharyngitis Tension type headache Tonsillitis Surgical History History of circumcision Social History Smoking and tobacco status: current every day smoker cigarettes Packs smoked per day: 1 Alcohol intake: current Alcohol intake frequency: holidays/special occasions only Physical Exam Const: COMMON NORMALS: no acute distress and patient oriented x3 GENERAL APPEARANCE: cooperative and well kempt HENMT: COMMON NORMALS: normocephalic and Normal external nose present HEAD & SCALP: normal to inspection and normocephalic NOSE: Normal external nose present MOUTH: Normal oral and palatal mucosa present THROAT: posterior oropharynx normal Eye: GENERAL EYE: appearance normal, both eyes and all related structures Neck/C-Spine: COMMON NORMALS: full ROM Lymph: LYMPHATIC: no lymphadenopathy noted Chest: COMMONS NORMALS: normal inspection of the chest Resp: COMMON NORMALS: normal respiratory effort EFFORT & INSPECTION: Yes able to speak in complete sentences Cardio: COMMON NORMALS: regular rate and regular rhythm RATE: regular rate RHYTHM: regular rhythm GI: COMMON NORMALS: non-tender Back/Pelvis: COMMON NORMALS: thoracic and lumbar spine normal to inspection Extremity: COMMON NORMALS: normal to inspection Neuro: COMMON NORMALS: patient oriented x3 and moves all extremities Psych: COMMON NORMALS: Normal thought process present, cooperative and speech normal APPEARANCE: Yes well kempt ATTITUDE: Yes calm ACTIVITY/MOTOR BEHAVIOR: Yes appropriate eye contact and Yes fidgeting SPEECH: Yes normal speech MOOD & AFFECT: Yes depressed mood and Yes tearful THOUGHT PROCESS: Normal thought process present THOUGHT CONTENT: Yes Suicidality present ATTENTION/CONCENTRATION: Yes attention grossly intact MEMORY/COGNITION: Yes memory grossly intact INSIGHT: Fair insight present (Psych) JUDGEMENT: Fair judgement present (Psych) Skin: COMMON NORMALS: no rashes or lesions noted GENERAL SKIN EXAM: no rashes or lesions noted Course Vital Signs: Vital signs: Vital Signs Temperature 98.1 F 12/24/20 20:45 Pulse Rate 88 12/24/20 20:45 Respiratory Rate 16 12/24/20 20:45 Blood Pressure 161/95 12/24/20 20:45 Pulse Oximetry 94 12/24/20 20:45 MDM - Psych MDM Narrative: Medical decision making narrative: 24-year-old male comes in today with increasing depression over the last 2 weeks with thoughts of suicide. Patient reports that he has held a gun to his head on a couple occasions over the last 2 weeks. Patient states that he has lack of self-worth. Patient also admits to use of cannabis and methamphetamines. On exam patient is alert and depressed. Patient does become tearful at times. Patient is requesting admission into the neuropsychiatric unit. Vital signs are normal. Differential diagnosis includes not limited to major depressive disorder, suicidal ideation, substance abuse disorder. Laboratory values were unremarkable. Discussed with Dr. Ollie Galeana, psychiatrist, he agreed for admission to neuropsychiatric unit for further evaluation and treatment of suicidal ideation. Patient needs admission for definitive treatment of depression and suicidal thoughts, and p rotection of self. Lab Data: Labs: Lab Results 12/24/20 12/24/20 12/24/20 Range/Units 21:20 21:20 21:57 WBC 10.4 H (4.0-10.0) 10^3/ uL RBC 5.19 (4.1-5.3) 10^6/u L Hgb 16.1 (11.7-16.6) g/dL Hct 47.4 (42.0-52.0) % MCV 91.3 (80-94) fL MCH 31.0 (28.0-34.0) pg MCHC 34.0 (30.0-36.0) g/dL RDW 11.9 L (12.1-15.1) % Plt Count 293 (130-400) 10^3/c mm MPV 9.7 (7.4-10.4) fL Neut % (Auto) 66.1 % Lymph % (Auto) 23.3 % [place] % (Auto) 6.9 % Eos % (Auto) 2.7 % Baso % (Auto) 0.8 % Neut # (Auto) 6.89 (1.8-7.7) 10^3/u L Lymph # (Auto) 2.4 (0.8-4.8) 10^3/u L [place] # (Auto) 0.7 (0.2-0.9) 10^3/u L Eos # (Auto) 0.3 (0.0-0.8) 10^3/u L Baso # (Auto) 0.1 (0.0-0.1) 10^3/u L Nucleated RBC % (a uto) 0 % Nucleated RBCs # 0.0 /100WBC Sodium (136-145) mmol/L Potassium (3.5-5.1) mmol/L Chloride (98-107) mmol/L Carbon Dioxide (22-29) mmol/L Anion Gap (5-19) BUN (6-20) mg/dL Creatinine (0.7-1.2) mg/dL GFR Calculation (90-130) mL/min Glucose (65-115) mg/dL Calculated Osmolal ity (285-295) mOsm/k g Calcium (8.5-10.5) mg/dL Total Bilirubin (0.15-1.2) mg/dL AST (0-40) U/L ALT (0-41) U/L Alkaline Phosphata se (40-130) IU/L Total Protein (6.6-8.7) g/dL Albumin (3.5-5.2) g/dL Globulin (1.3-4.6) g/dL TSH (0.27-4.20) uIU/ mL Urine Color Yellow (Yellow) Urine Appearance Clear (CLEAR) Urine pH 5 (5-7) Ur Specific Gravit y 1.020 (1.005-1.030) Urine Protein Trace (Negative) Urine Glucose (UA) Norm (Normal) Urine Ketones 1+ H (Negative) Urine Blood Neg (Negative) Urine Nitrate Negative (Negative) Urine Bilirubin 1+ H (Negative) Urine Urobilinogen 1 H (Negative) mg/dL Ur Leukocyte Lauren ase Negative (Negative) Urine RBC 0-4 H (0-2) /hpf Urine WBC 0-4 H (0-5) /hpf Ur Squamous Epith Cells 0-4 H (0-5) /hpf Calcium Oxalate Cr ystal 15-25 H /hpf Amorphous Sediment Not Reportable Urine Bacteria Trace (NONE) /hpf Hyaline Casts 0-4 H /lpf Urine Mucus 4+ /hpf Salicylates (3-10) mg/dL Urine Opiates Scre en Negative (Negative) ng/mL Acetaminophen (10-30) ug/mL Ur Barbiturates Sc reen Negative (Negative) ng/mL Ur Phencyclidine S crn Negative (Negative) ng/mL Ur Amphetamines Sc reen Positive H (Negative) ng/mL U Benzodiazepines Scrn Negative (Negative) ng/mL Urine Cocaine Scre en Negative (Negative) ng/mL U Marijuana (THC) Screen Negative (Negative) ng/mL Ethyl Alcohol (0-10) mg/dL 12/24/20 Range/Units 21:57 WBC (4.0-10.0) 10^3/ uL RBC (4.1-5.3) 10^6/u L Hgb (11.7-16.6) g/dL Hct (42.0-52.0) % MCV (80-94) fL MCH (28.0-34.0) pg MCHC (30.0-36.0) g/dL RDW (12.1-15.1) % Plt Count (130-400) 10^3/c mm MPV (7.4-10.4) fL Neut % (Auto) % Lymph % (Auto) % [place] % (Auto) % Eos % (Auto) % Baso % (Auto) % Neut # (Auto) (1.8-7.7) 10^3/u L Lymph # (Auto) (0.8-4.8) 10^3/u L [place] # (Auto) (0.2-0.9) 10^3/u L Eos # (Auto) (0.0-0.8) 10^3/u L Baso # (Auto) (0.0-0.1) 10^3/u L Nucleated RBC % (a uto) % Nucleated RBCs # /100WBC Sodium 138 (136-145) mmol/L Potassium 3.8 (3.5-5.1) mmol/L Chloride 100 (98-107) mmol/L Carbon Dioxide 26 (22-29) mmol/L Anion Gap 15.8 (5-19) BUN 9 (6-20) mg/dL Creatinine 0.8 (0.7-1.2) mg/dL GFR Calculation 118.8 (90-130) mL/min Glucose 85 (65-115) mg/dL Calculated Osmolal ity 284 L (285-295) mOsm/k g Calcium 9.1 (8.5-10.5) mg/dL Total Bilirubin 0.6 (0.15-1.2) mg/dL AST 20 (0-40) U/L ALT 24 (0-41) U/L Alkaline Phosphata se 54 (40-130) IU/L Total Protein 7.3 (6.6-8.7) g/dL Albumin 4.7 (3.5-5.2) g/dL Globulin 2.6 (1.3-4.6) g/dL TSH 1.56 (0.27-4.20) uIU/ mL Urine Color (Yellow) Urine Appearance (CLEAR) Urine pH (5-7) Ur Specific Gravit y (1.005-1.030) Urine Protein (Negative) Urine Glucose (UA) (Normal) Urine Ketones (Negative) Urine Blood (Negative) Urine Nitrate (Negative) Urine Bilirubin (Negative) Urine Urobilinogen (Negative) mg/dL Ur Leukocyte Lauren ase (Negative) Urine RBC (0-2) /hpf Urine WBC (0-5) /hpf Ur Squamous Epith Cells (0-5) /hpf Calcium Oxalate Cr ystal /hpf Amorphous Sediment Urine Bacteria (NONE) /hpf Hyaline Casts /lpf Urine Mucus /hpf Salicylates < 0.3 L (3-10) mg/dL Urine Opiates Scre en (Negative) ng/mL Acetaminophen < 5.0 L (10-30) ug/mL Ur Barbiturates Sc reen (Negative) ng/mL Ur Phencyclidine S crn (Negative) ng/mL Ur Amphetamines Sc reen (Negative) ng/mL U Benzodiazepines Scrn (Negative) ng/mL Urine Cocaine Scre en (Negative) ng/mL U Marijuana (THC) Screen (Negative) ng/mL Ethyl Alcohol < 10 (0-10) mg/dL Discharge Plan Discharge Patient Disposition: Admitted As Inpatient Clinical Impression: Suicidal ideation, Depressive disorder, Methamphetamine dependence Condition: Stable Coding Level of Care Code ED Economic History Teacher for Yina Fwkatie Exam Comprehensive
[2020-12-24 22:00] LABS: Basophils # 0.1 10^3/uL (0.0-0.1); Basophils % 0.8 %; Eosinophils # 0.3 10^3/uL (0.0-0.8); Eosinophils % 2.7 %; Hematocrit 47.4 % (42.0-52.0); Hemoglobin 16.1 g/dL (11.7-16.6); Lymphocytes # 2.4 10^3/uL (0.8-4.8); Lymphocytes % 23.3 %; Mean Corpuscular Volume 91.3 fL (80-94); Mean Platelet Volume 9.7 fL (7.4-10.4); Monocytes # 0.7 10^3/uL (0.2-0.9); Monocytes % 6.9 %; Neutrophils # 6.89 10^3/uL (1.8-7.7); Neutrophils % 66.1 %; Nucleated Red Blood Cells % 0 %; Platelet Count 293 10^3/cmm (130-400); Red Blood Count 5.19 10^6/uL (4.1-5.3); Red Cell Distribution Width 11.9 % (12.1-15.1); White Blood Count 10.4 10^3/uL (4.0-10.0)
[2020-12-24 22:01] LABS: Add Urine Microscopic? YES; Bilirubin Urine 1+ (Negative); Blood Urine Neg (Negative); Glucose Urine UA Norm (Normal); Ketones Urine 1+ (Negative); Leukocyte Esterase Urine Negative (Negative); Nitrate Urine Negative (Negative); Protein Urine Trace (Negative); Urine Appearance Clear (CLEAR); Urine Color Yellow (Yellow); Urobilinogen Urine 1 mg/dL (Negative); pH Urine 5 (5-7)
[2020-12-24 22:02] LABS: Bacteria Urine TRACE /hpf; RBC Urine 0-4 /hpf (0-2); Squamous Epithelial Cell Urine 0-4 /hpf (0-5); WBC Urine 0-4 /hpf (0-5)
[2020-12-24 22:03] LABS: Add Urine Culture? No; Calcium Oxalate Crystals Urine 15-25 /hpf; Hyaline Casts Urine 0-4 /lpf; Mucus Urine 4+ /hpf
[2020-12-24 22:06] LABS: Amphetamines Screen Urine Positive (Negative); Barbiturates Screen Urine Negative (Negative); Benzodiazepines Screen Urine Negative (Negative); Cocaine Screen Urine Negative (Negative); Opiate Screen Urine Negative (Negative); PCP Screen Urine Negative (Negative); THC Screen Urine Negative (Negative)
[2020-12-24 22:37] LABS: Alanine Aminotransferase 24 U/L (0-41); Albumin Level 4.7 g/dL (3.5-5.2); Alkaline Phosphatase 54 IU/L (40-130); Aspartate Amino Transferase 20 U/L (0-40); Blood Urea Nitrogen 9 mg/dL (6-20); Calcium 9.1 mg/dL (8.5-10.5); Carbon Dioxide 26 mmol/L (22-29); Chloride 100 mmol/L (98-107); Globulin 2.6 g/dL (1.3-4.6); Glomerular Filtration Rate 118.8 mL/min (90-130); Glucose 85 mg/dL (65-115); Osmolality Calculated 284 mOsm/kg (285-295); Sodium 138 mmol/L (136-145); Thyroid Stimulating Hormone 1.56 uIU/mL (0.27-4.20); Total Bilirubin 0.6 mg/dL (0.15-1.2); Total Protein 7.3 g/dL (6.6-8.7)
[2020-12-24 22:45] LABS: Acetaminophen < 5.0 ug/mL (10-30); Alcohol Level < 10 mg/dL (0-10); Anion Gap 15.8 (5-19); Potassium 3.8 mmol/L (3.5-5.1); Salicylate < 0.3 mg/dL (3-10)
[2020-12-25 00:08] VITALS: BP 159/112; PULSE 77; RESP 18; TEMP 36.9; O2SAT 96
[2020-12-25] MEDS: trazodone 50 mg Tablet PO (01:03)
[2020-12-25] MEDS: nicotine 2 mg Gum BUCCAL ×4 (01:05→20:28)
[2020-12-25 06:00] VITALS: BP 127/77; PULSE 67; RESP 18; TEMP 37.1; O2SAT 98
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
[2020-12-25] MEDS: ARIPiprazole 10 mg Tablet 5 MG PO (13:28)
[2020-12-25 14:00] VITALS: BP 132/83; PULSE 81; RESP 17; TEMP 36.5; O2SAT 97
[2020-12-25 20:49] VITALS: BP 122/71; PULSE 76; RESP 18; TEMP 36.5; O2SAT 96
[2020-12-26 06:00] VITALS: BP 158/100; PULSE 62; RESP 17; TEMP 37; O2SAT 98
[2020-12-26] MEDS: ARIPiprazole 10 mg Tablet 5 MG PO (08:09)
[2020-12-26 13:46] VITALS: BP 132/74; PULSE 68; RESP 16; TEMP 36.9; O2SAT 97
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
[2020-12-26 14:51] VITALS: BP 132/74; PULSE 68; RESP 16; TEMP 36.9; O2SAT 97
== END 2020-12-26 15:43 | disposition home or self-care (01) | DRG 885 ==
LOC: ER 23:19 → NP 12-25 07:06
PROVIDERS: Admitting Provider Psychiatry & Neurology Child & Adolescent Psychiatry; Emergency Provider Nurse Practitioner Family; Visit Provider Psychiatry & Neurology Child & Adolescent Psychiatry
DX: F33.2 Major depressive disorder, recurrent severe without psychotic features (principal); R45.851 Suicidal ideations; F15.20 Other stimulant dependence, uncomplicated; F12.10 Cannabis abuse, uncomplicated; F43.10 Post-traumatic stress disorder, unspecified; F63.81 Intermittent explosive disorder; Z81.8 Family history of other mental and behavioral disorders; G89.29 Other chronic pain; M54.9 Dorsalgia, unspecified; Z86.19 Personal history of other infectious and parasitic diseases; I10 Essential (primary) hypertension; F17.210 Nicotine dependence, cigarettes, uncomplicated; F41.9 Anxiety disorder, unspecified
CPT/HCPCS: 80053; 80306; 80307; 81001; 84443; 85025; 99285

== ENCOUNTER 2021-01-20 22:12 | Emergency (ER) | payer SELFPAY ==
[2021-01-20 22:28] VITALS: BP 152/91; PULSE 86; RESP 16; TEMP 36.7; O2SAT 96; BMI 30.7
--- NOTE | 2021-01-20 23:35 | W.ED.EAR ---
HPI - Ear Problem General: Chief complaint: Ear Stated complaint: right ear pain Time Seen by Provider: 01/20/21 23:35 History of Present Illness: HPI Narrative: 25-year-old male patient comes in today with complaints of right ear pain. Patient has a history of recurrent otitis media when he was younger. Patient appears well. Patient appears in mild pain. Review of Systems General: Reports: 10 or more systems reviewed and unremarkable except in HPI and below ENMT: Reports: other (Right ear pain) [facility] ED PFSH: Medical History (Updated 01/20/21 @ 23:52 by DMITRIY Pham) Cannabis dependence, uncomplicated Chronic back pain Depression Depressive disorder Heart murmur Hemoptysis Hepatitis History of suicidal ideation HTN (hypertension) Leukocytosis Nicotine dependence, cigarettes, uncomplicated I spent 5 minutes providing smoking cessation counseling. We talked about history of use, current usage, prior attempts at quitting, and psychological barriers to quitting. I gauged his desire to quit and he is not ready at this time. Other stimulant dependence, uncomplicated Pharyngitis Post-traumatic stress disorder, chronic Tension type headache Tonsillitis Surgical History History of circumcision Social History Smoking and tobacco status: current every day smoker cigarettes Packs smoked per day: 1 Alcohol intake: current Alcohol intake frequency: holidays/special occasions only Physical Exam Const: COMMON NORMALS: no acute distress and patient oriented x3 GENERAL APPEARANCE: cooperative HENMT: COMMON NORMALS: normocephalic and Normal external nose present HEAD & SCALP: normal to inspection and normocephalic NOSE: Normal external nose present TYMPANIC MEMBRANE: TM abnormal TM laterality: right Details: bulging, dull and erythematous and left Details: erythematous MOUTH: Normal oral and palatal mucosa present THROAT: posterior oropharynx normal Eye: GENERAL EYE: appearance normal, both eyes and all related structures Neck/C-Spine: COMMON NORMALS: full ROM Lymph: LYMPHATIC: no lymphadenopathy noted Chest: COMMONS NORMALS: normal inspection of the chest Resp: COMMON NORMALS: normal respiratory effort EFFORT & INSPECTION: Yes able to speak in complete sentences Cardio: COMMON NORMALS: regular rate and regular rhythm RATE: regular rate RHYTHM: regular rhythm GI: COMMON NORMALS: non-tender Extremity: COMMON NORMALS: normal to inspection Neuro: COMMON NORMALS: patient oriented x3 and moves all extremities Psych: COMMON NORMALS: mental status grossly normal and cooperative Skin: COMMON NORMALS: no rashes or lesions noted GENERAL SKIN EXAM: no rashes or lesions noted Course Vital Signs: Vital signs: Vital Signs Temperature 98.1 F 01/20/21 22:28 Pulse Rate 86 01/20/21 22:28 Respiratory Rate 16 01/20/21 22:28 Blood Pressure 152/91 01/20/21 22:28 Pulse Oximetry 96 01/20/21 22:28 MDM - Ear MDM Narrative: Medical decision making narrative: Patient comes in today with complaints of right ear ache. On exam the right TM is erythematous, bulging, and dull. Left TM is slightly red. Patient appears well otherwise. Posterior pharynx does have some drainage. Differential diagnosis includes but not limited to otitis media, upper respiratory infection, otalgia NOS. Patient appears to have a mild right ear infection. We will start on amoxicillin 1000 mg twice a day for next 7 days. Encourage plenty of fluids and follow-up as needed for worsening symptoms. Patient reported understanding. Discharge Plan Discharge Patient Disposition: Home Clinical Impression: Otitis media Qualifiers: Otitis media type: other nonsuppurative Chronicity: acute Laterality: right Recurrence: not specified as recurrent Qualified Code(s): H65.191 - Other acute nonsuppurative otitis media, right ear Condition: Stable Prescriptions: New amoxicillin 500 mg tablet 1,000 mg PO BID 7 Days Qty: 28 RF: 0 No Action aripiprazole 10 mg tablet 5 mg PO DAILY 30 Days Qty: 30 RF: 1 trazodone 50 mg tablet 50 mg PO BEDTIME PRN (Reason: Sleep) 30 Days Qty: 30 RF: 1 hydroxyzine HCl 25 mg tablet 25 mg PO BID PRN (Reason: anxiety) Qty: 60 RF: 1 Discharge Orders: Discharge ED (Routine); Ordered 01/20/21 Ordered By: Mikhail Bruce Discharge Diet: Usual diet Discharge Activity: Increase activity as tolerated Patient Instructions: Otitis Media (ED), Opioid Safety Activity Restrictions/Additional Instructions: Use acetaminophen and ibuprofen for pain. Drink plenty of water with medication. Use a warm moist pack to the ear for pain. Follow-up with primary care as needed. Return to the ER for worsening symptoms or new concerns. Coding Level of Care Code ED Stereoptic Projection Topographer for Yina Alfaro
[2021-01-20] MEDS: amoxicillin 500 mg Capsule 1000 MG PO (23:59)
== END 2021-01-21 | disposition home or self-care (01) ==
PROVIDERS: Emergency Provider Nurse Practitioner Family
DX: H65.191 Other acute nonsuppurative otitis media, right ear (principal); I10 Essential (primary) hypertension; F17.210 Nicotine dependence, cigarettes, uncomplicated
CPT/HCPCS: 99282

== ENCOUNTER 2021-05-05 21:21 | Inpatient (IN) | payer MEDICAID, SELFPAY ==
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
[2021-05-05 21:25] VITALS: PULSE 109; RESP 18; TEMP 36.4; O2SAT 96; BMI 31.0
--- NOTE | 2021-05-05 21:37 | W.ED.PSYCHS ---
HPI - Psych General: Chief Complaint: Psychiatric Symptoms Stated Complaint: SI Time Seen by Provider: 05/05/21 21:37 PFSH ED PFSH: Medical History Cannabis dependence, uncomplicated Chronic back pain Depression Depressive disorder Heart murmur Hemoptysis Hepatitis History of suicidal ideation HTN (hypertension) Leukocytosis Nicotine dependence, cigarettes, uncomplicated Other stimulant dependence, uncomplicated Pharyngitis Post-traumatic stress disorder, chronic Psychiatric care Tension type headache Tonsillitis Surgical History History of circumcision Social History Smoking and tobacco status: current every day smoker cigarettes Packs smoked per day: 1 Alcohol intake: current Alcohol intake frequency: holidays/special occasions only Course Vital Signs: Vital signs: Vital Signs Temperature 97.6 F 05/05/21 21:25 Pulse Rate 109 H 05/05/21 21:25 Respiratory Rate 18 05/05/21 21:25 Pulse Oximetry 96 05/05/21 21:25 Discharge Plan Discharge Prescriptions: No Action fluoxetine [Prozac] 20 mg capsule 20 mg PO DAILY Qty: 30 RF: 1 trazodone 50 mg tablet 50 mg PO BEDTIME PRN (Reason: Sleep) 30 Days Qty: 30 RF: 1 hydroxyzine HCl 25 mg tablet 25 mg PO BID PRN (Reason: anxiety) Qty: 60 RF: 1 Coding Level of Care Code ED Community Outreach Director for Yina Alfaro
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
[2021-05-05 21:58] LABS: Basophils # 0.1 10^3/uL (0.0-0.1); Basophils % 0.8 %; Eosinophils # 0.4 10^3/uL (0.0-0.8); Eosinophils % 4.1 %; Hematocrit 48.3 % (42.0-52.0); Hemoglobin 16.7 g/dL (11.7-16.6); Lymphocytes # 2.9 10^3/uL (0.8-4.8); Lymphocytes % 30.9 %; Mean Corpuscular HGB Conc 34.6 g/dL (30.0-36.0); Mean Corpuscular Hemoglobin 30.8 pg (28.0-34.0); Mean Platelet Volume 9.5 fL (7.4-10.4); Monocytes # 0.7 10^3/uL (0.2-0.9); Monocytes % 7.6 %; Neutrophils # 5.21 10^3/uL (1.8-7.7); Neutrophils % 56.3 %; Nucleated Red Blood Cells % 0 %; Platelet Count 307 10^3/cmm (130-400); Red Blood Count 5.43 10^6/uL (4.1-5.3); Red Cell Distribution Width 12.6 % (12.1-15.1); White Blood Count 9.3 10^3/uL (4.0-10.0)
[2021-05-05 22:00] VITALS: BP 173/106; PULSE 92; RESP 18; O2SAT 99
[2021-05-05 22:11] LABS: Amphetamines Screen Urine Positive (Negative); Barbiturates Screen Urine Negative (Negative); Benzodiazepines Screen Urine Negative (Negative); Cocaine Screen Urine Negative (Negative); Opiate Screen Urine Negative (Negative); PCP Screen Urine Negative (Negative); THC Screen Urine Negative (Negative)
[2021-05-05 22:19] LABS: Alanine Aminotransferase 23 U/L (0-41); Albumin Level 4.7 g/dL (3.5-5.2); Alkaline Phosphatase 63 IU/L (40-130); Anion Gap 18.6 (5-19); Aspartate Amino Transferase 23 U/L (0-40); Blood Urea Nitrogen 11 mg/dL (6-20); Calcium 9.1 mg/dL (8.5-10.5); Carbon Dioxide 23 mmol/L (22-29); Chloride 101 mmol/L (98-107); Globulin 2.3 g/dL (1.3-4.6); Glomerular Filtration Rate 117.8 mL/min (90-130); Glucose 98 mg/dL (65-115); Osmolality Calculated 287 mOsm/kg (285-295); Potassium 3.6 mmol/L (3.5-5.1); Sodium 139 mmol/L (136-145); Total Bilirubin 0.3 mg/dL (0.15-1.2)
[2021-05-05 22:20] LABS: Add Urine Culture? No; Add Urine Microscopic? YES; Bacteria Urine TRACE /hpf; Bilirubin Urine Neg (Negative); Blood Urine Neg (Negative); Glucose Urine UA Norm (Normal); Ketones Urine Negative (Negative); Leukocyte Esterase Urine Negative (Negative); Mucus Urine 1+ /hpf; Nitrate Urine Negative (Negative); Protein Urine Trace (Negative); RBC Urine 0-4 /hpf (0-2); Squamous Epithelial Cell Urine 0-4 /hpf (0-5); Urine Appearance Clear (CLEAR); Urine Color Yellow (Yellow); Urobilinogen Urine Norm (Negative); WBC Urine 0-4 /hpf (0-5); pH Urine 6.5 (5-7)
[2021-05-05 22:20] LABS: Acetaminophen < 5.0 ug/mL (10-30); Alcohol Level < 10 mg/dL (0-10); Salicylate < 0.3 mg/dL (3-10)
[2021-05-05 22:41] LABS: SARS Covid-2 Antigen Negative (Negative)
--- NOTE | 2021-05-05 23:03 | W.ED.PSYCHS ---
HPI - Psych General: Chief Complaint: Psychiatric Symptoms Stated Complaint: SI Time Seen by Provider: 05/05/21 21:37 History of Present Illness: Duration: constant and getting worse Relieving factors: none Exacerbating factors: none Associated psychiatric symptoms: depression and suicidal ideation Treatments prior to arrival: none If self harm: admits thoughts of self harm, has plan and has acted on plan Review of Systems Const: Denies: fever(s) or chills Eyes: Denies: change in vision Resp: Reports: non-productive cough and wheezing; Denies: dyspnea GI: Reports: abdominal pain, nausea and vomiting PFS ED PFSH: Medical History Cannabis dependence, uncomplicated Chronic back pain Depression Depressive disorder Heart murmur Hemoptysis Hepatitis History of suicidal ideation HTN (hypertension) Leukocytosis Nicotine dependence, cigarettes, uncomplicated Other stimulant dependence, uncomplicated Pharyngitis Post-traumatic stress disorder, chronic Psychiatric care Tension type headache Tonsillitis Surgical History History of circumcision Social History Smoking and tobacco status: current every day smoker cigarettes Packs smoked per day: 1 Alcohol intake: current Alcohol intake frequency: holidays/special occasions only Physical Exam Const: COMMON NORMALS: no acute distress, patient oriented x3 and alert Eye: COMMON NORMALS: Equal, round and reactive pupils present and EOMs intact bilaterally PUPIL: Yes Equal, round and reactive pupils present Chest: COMMONS NORMALS: normal inspection of the chest Resp: COMMON NORMALS: normal respiratory effort, No use of accessory muscles and clear to auscultation bilaterally AUSCULTATION: clear to auscultation bilaterally Cardio: COMMON NORMALS: regular rate and regular rhythm RATE: regular rate RHYTHM: regular rhythm GI: COMMON NORMALS: Normal to inspection, nondistended, normoactive bowel sounds present and Soft to palpation PALPATION: Yes Soft to palpation Neuro: COMMON NORMALS: patient oriented x3 SENSORIUM/ORIENTATION: Yes alert Course Vital Signs: Vital signs: Vital Signs Temperature 98.6 F 05/06/21 03:09 Pulse Rate 75 05/06/21 03:09 Respiratory Rate 18 05/06/21 03:09 Blood Pressure 139/87 05/06/21 03:09 Pulse Oximetry 97 05/06/21 03:09 MDM - Psych MDM Narrative: Medical decision making narrative: 25-year-old gentleman with an attempted suicide. He is medically stable. Spoke with psychiatry. We will admit to the neuro psychiatry unit. He has been placed under 96-hour hold. Lab Data: Labs: Lab Results 05/05/21 05/05/21 05/05/21 21:40 21:40 21:53 WBC 9.3 10^3/uL 10^3/ uL (4.0-10.0) RBC 5.43 10^6/uL H 10 ^6/uL (4.1-5.3) Hgb 16.7 g/dL H g/dL (11.7-16.6) Hct 48.3 % % (42.0-52.0) MCV 89.0 fl fl (80-94) MCH 30.8 pg pg (28.0-34.0) MCHC 34.6 g/dL g/dL (30.0-36.0) RDW 12.6 % % (12.1-15.1) Plt Count 307 10^3/cmm 10^3 /cmm (130-400) MPV 9.5 fL fL (7.4-10.4) Neut % (Auto) 56.3 % % Lymph % (Auto) 30.9 % % [place] % (Auto) 7.6 % % Eos % (Auto) 4.1 % % Baso % (Auto) 0.8 % % Neut # (Auto) 5.21 10^3/uL 10^3 /uL (1.8-7.7) Lymph # (Auto) 2.9 10^3/uL 10^3/ uL (0.8-4.8) [place] # (Auto) 0.7 10^3/uL 10^3/ uL (0.2-0.9) Eos # (Auto) 0.4 10^3/uL 10^3/ uL (0.0-0.8) Baso # (Auto) 0.1 10^3/uL 10^3/ uL (0.0-0.1) Nucleated RBC % (a uto) 0 % % Nucleated RBCs # 0.0 /100WBC /100W BC Sodium Potassium Chloride Carbon Dioxide Anion Gap BUN Creatinine GFR Calculation Glucose Calculated Osmolal ity Calcium Total Bilirubin AST ALT Alkaline Phosphata se Total Protein Albumin Globulin Urine Color Yellow (Yellow) Urine Appearance Clear (CLEAR) Urine pH 6.5 (5-7) Ur Specific Gravit y 1.020 (1.005-1.030) Urine Protein Trace (Negative) Urine Glucose (UA) Norm (Normal) Urine Ketones Negative (Negative) Urine Blood Neg (Negative) Urine Nitrate Negative (Negative) Urine Bilirubin Neg (Negative) Urine Urobilinogen Norm mg/dL mg/dL (Negative) Ur Leukocyte Lauren ase Negative (Negative) Urine RBC 0-4 /hpf H /hpf (0-2) Urine WBC 0-4 /hpf H /hpf (0-5) Ur Squamous Epith Cells 0-4 /hpf H /hpf (0-5) Amorphous Sediment Not Reportable Urine Bacteria Trace /hpf /hpf (NONE) Urine Mucus 1+ /hpf /hpf Salicylates Urine Opiates Scre en Negative ng/mL ng /mL (Negative) Acetaminophen Ur Barbiturates Sc reen Negative ng/mL ng /mL (Negative) Ur Phencyclidine S crn Negative ng/mL ng /mL (Negative) Ur Amphetamines Sc reen Positive ng/mL H ng/mL (Negative) U Benzodiazepines Scrn Negative ng/mL ng /mL (Negative) Urine Cocaine Scre en Negative ng/mL ng /mL (Negative) U Marijuana (THC) Screen Negative ng/mL ng /mL (Negative) Ethyl Alcohol SARS-CoV-2 Ag (Rap id) 05/05/21 05/05/21 21:53 22:16 WBC RBC Hgb Hct MCV MCH MCHC RDW Plt Count MPV Neut % (Auto) Lymph % (Auto) [place] % (Auto) Eos % (Auto) Baso % (Auto) Neut # (Auto) Lymph # (Auto) [place] # (Auto) Eos # (Auto) Baso # (Auto) Nucleated RBC % (a uto) Nucleated RBCs # Sodium 139 mmol/L mmol/L (136-145) Potassium 3.6 mmol/L mmol/L (3.5-5.1) Chloride 101 mmol/L mmol/L (98-107) Carbon Dioxide 23 mmol/L mmol/L (22-29) Anion Gap 18.6 (5-19) BUN 11 mg/dL mg/dL (6-20) Creatinine 0.8 mg/dL mg/dL (0.7-1.2) GFR Calculation 117.8 mL/min mL/m in (90-130) Glucose 98 mg/dL mg/dL (65-115) Calculated Osmolal ity 287 mOsm/kg mOsm/ kg (285-295) Calcium 9.1 mg/dL mg/dL (8.5-10.5) Total Bilirubin 0.3 mg/dL mg/dL (0.15-1.2) AST 23 U/L U/L (0-40) ALT 23 U/L U/L (0-41) Alkaline Phosphata se 63 IU/L IU/L (40-130) Total Protein 7.0 g/dL g/dL (6.6-8.7) Albumin 4.7 g/dL g/dL (3.5-5.2) Globulin 2.3 g/dL g/dL (1.3-4.6) Urine Color Urine Appearance Urine pH Ur Specific Gravit y Urine Protein Urine Glucose (UA) Urine Ketones Urine Blood Urine Nitrate Urine Bilirubin Urine Urobilinogen Ur Leukocyte Lauren ase Urine RBC Urine WBC Ur Squamous Epith Cells Amorphous Sediment Urine Bacteria Urine Mucus Salicylates < 0.3 mg/dL L mg/ dL (3-10) Urine Opiates Scre en Acetaminophen < 5.0 ug/mL L ug/ mL (10-30) Ur Barbiturates Sc reen Ur Phencyclidine S crn Ur Amphetamines Sc reen U Benzodiazepines Scrn Urine Cocaine Scre en U Marijuana (THC) Screen Ethyl Alcohol < 10 mg/dL mg/dL (0-10) SARS-CoV-2 Ag (Rap id) Negative (Negative) Discharge Plan Discharge Patient Disposition: Admitted As Inpatient Admit Provider: Petr Mercado Clinical Impression: Suicidal ideation Condition: Stable Coding Level of Care Code ED Race Engine Builder for Chg Fwd Exam Detailed
[2021-05-06 02:54] VITALS: BP 117/84; PULSE 78; RESP 18; O2SAT 97
[2021-05-06 03:09] VITALS: BP 139/87; PULSE 75; RESP 18; TEMP 37; O2SAT 97
[2021-05-06] MEDS: hyDROXYzine 25 mg Capsule 50 MG PO ×3 (03:21→22:17)
[2021-05-06] MEDS: ondansetron 4 MG Tablet PO (03:21)
[2021-05-06] MEDS: trazodone 50 mg Tablet PO ×2 (03:22→22:18)
[2021-05-06] MEDS: nicotine 2 mg Gum BUCCAL ×4 (03:28→22:19)
[2021-05-06] MEDS: ibuprofen 600 mg Tablet PO ×3 (03:28→22:14)
[2021-05-06 06:00] VITALS: BP 116/53; PULSE 53; RESP 20; TEMP 36.9; O2SAT 98; BMI 31.0
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
[2021-05-06 14:00] VITALS: BP 122/82; PULSE 68; RESP 18; TEMP 36.4; O2SAT 94
--- NOTE | 2021-05-06 19:11 | PC.NURSE ---
Pt requesting medication for anxiety. Vistaril 50 mg given without complication.
[2021-05-06 20:39] VITALS: BP 143/94; PULSE 78; RESP 18; TEMP 37.1; O2SAT 97
[2021-05-07 06:00] VITALS: BP 98/62; PULSE 46; RESP 15; TEMP 36.7; O2SAT 95
--- NOTE | 2021-05-07 09:47 | PC.OT ---
OT EVALUATION ATTEMPTED; PATIENT IS SLEEPING SOUNDLY AND DOES NOT AWAKEN
--- NOTE | 2021-05-07 12:57 | NPU.GN ---
[facility] Topic:Jordyn Barrel / Discussion General Mood of Group:Umang did attend and participate in group a little. He kept wandering in and out of group. He seemed calm and was quiet.
[2021-05-07 14:00] VITALS: BP 103/62; PULSE 61; RESP 16; TEMP 36.4; O2SAT 96
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
[2021-05-07] MEDS: nicotine 2 mg Gum BUCCAL (21:03)
[2021-05-07 21:35] VITALS: BP 105/60; PULSE 70; RESP 16; TEMP 36.7; O2SAT 93
[2021-05-07] MEDS: OLANZapine 5 mg ODT PO (21:35)
[2021-05-07] MEDS: trazodone 50 mg Tablet PO (22:47)
--- NOTE | 2021-05-07 22:50 | PC.NURSE ---
pt requested sleep and anxiety meds. trazodone 50mg po for sleep and zyprexa 5mg SL for anxiety given.
--- NOTE | 2021-05-08 | PC.NURSE ---
pt resting quietly with both eyes closed.
[2021-05-08 06:19] VITALS: BP 100/63; PULSE 60; RESP 18; TEMP 36.6; O2SAT 97
[2021-05-08] MEDS: fluoxetine 20 mg Capsule 40 MG PO (08:48)
[2021-05-08] MEDS: nicotine 2 mg Gum BUCCAL (08:49)
[2021-05-08] MEDS: lamoTRIgine 25 mg Tablet PO (09:01)
--- NOTE | 2021-05-08 13:18 | NPU.GN ---
[facility] Topic: Jordyn Pablo General Mood of Group: Umang did attend and participate in group today.
[2021-05-08 14:00] VITALS: BP 116/66; PULSE 62; RESP 16; TEMP 36.7; O2SAT 96
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
[2021-05-08 19:51] VITALS: BP 147/93; PULSE 110; RESP 16; O2SAT 100
[2021-05-09 06:00] VITALS: BP 130/78; PULSE 81; RESP 17; O2SAT 98
[2021-05-09] MEDS: nicotine 2 mg Gum BUCCAL ×2 (08:34→15:18)
[2021-05-09] MEDS: lamoTRIgine 25 mg Tablet PO (08:34)
[2021-05-09] MEDS: fluoxetine 20 mg Capsule 40 MG PO (08:34)
--- NOTE | 2021-05-09 11:25 | NPU.GN ---
[facility] Topic:Checkers General Mood of Group: Umang did participate and attend group today.
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
[2021-05-09 19:41] VITALS: BP 142/76; PULSE 79; RESP 15; O2SAT 97
[2021-05-10 06:00] VITALS: BP 135/90; PULSE 72; RESP 18; O2SAT 96
[2021-05-10] MEDS: lamoTRIgine 25 mg Tablet PO (08:32)
[2021-05-10] MEDS: fluoxetine 20 mg Capsule 40 MG PO (08:33)
[2021-05-10] MEDS: nicotine 2 mg Gum BUCCAL ×6 (08:33→22:15)
[2021-05-10] MEDS: propranolol 20 mg Tablet PO (08:33)
[2021-05-10 13:36] VITALS: BP 126/85; PULSE 75; RESP 17; TEMP 37.1; O2SAT 93
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
[2021-05-10 20:27] VITALS: BP 141/95; PULSE 92; RESP 17; O2SAT 95
[2021-05-10] MEDS: trazodone 50 mg Tablet PO ×2 (20:39→21:07)
[2021-05-10] MEDS: ondansetron 4 MG Tablet PO (22:15)
[2021-05-11 06:00] VITALS: BP 112/68; PULSE 61; RESP 18; O2SAT 97
[2021-05-11] MEDS: fluoxetine 20 mg Capsule 40 MG PO (08:49)
[2021-05-11] MEDS: lamoTRIgine 25 mg Tablet PO (08:49)
[2021-05-11] MEDS: propranolol 20 mg Tablet PO ×2 (08:49→20:55)
[2021-05-11] MEDS: nicotine 2 mg Gum BUCCAL ×4 (08:50→20:52)
[2021-05-11] MEDS: acetaminophen 325 mg Tablet 650 MG PO (09:20)
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
[2021-05-11 14:00] VITALS: BP 123/79; PULSE 75; RESP 18; TEMP 37.2; O2SAT 96
[2021-05-11] MEDS: OLANZapine 5 mg ODT PO ×2 (17:49→20:56)
[2021-05-11 20:44] VITALS: BP 118/78; PULSE 68; RESP 16; TEMP 37.2; O2SAT 98
[2021-05-11] MEDS: trazodone 50 mg Tablet PO (20:56)
[2021-05-11] MEDS: bisacodyl 5 mg Tablet 10 MG PO (21:16)
[2021-05-12 06:00] VITALS: BP 98/64; PULSE 97; RESP 15; O2SAT 96
[2021-05-12] MEDS: lamoTRIgine 25 mg Tablet PO (08:36)
[2021-05-12] MEDS: fluoxetine 20 mg Capsule 40 MG PO (08:37)
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
[2021-05-12 14:00] VITALS: BP 126/76; PULSE 70; RESP 18; TEMP 37; O2SAT 97
[2021-05-12] MEDS: nicotine 2 mg Gum BUCCAL ×2 (16:19→19:33)
[2021-05-12] MEDS: ibuprofen 600 mg Tablet PO ×2 (17:57→20:18)
[2021-05-12] MEDS: bisacodyl 5 mg Tablet 10 MG PO (20:17)
[2021-05-12] MEDS: trazodone 50 mg Tablet PO (20:18)
[2021-05-12] MEDS: propranolol 20 mg Tablet PO (20:18)
[2021-05-12 20:35] VITALS: BP 146/84; PULSE 67; RESP 15; O2SAT 98
[2021-05-12] MEDS: hyDROXYzine 25 mg Capsule 50 MG PO (20:51)
[2021-05-12] MEDS: acetaminophen 325 mg Tablet 650 MG PO (20:51)
--- NOTE | 2021-05-12 20:53 | PC.NURSE ---
patient continues to rate pain at 6-7/10, after Ibuprofen, medicated with PRN Tylenol. Reporting, Feeling like I'm about to have a full out anxiety attack. Medicated with PRN Vistaril.
[2021-05-12] MEDS: haloperidol 5 mg Tablet PO (21:36)
[2021-05-12] MEDS: OLANZapine 5 mg ODT PO (21:36)
--- NOTE | 2021-05-12 21:43 | PC.NURSE ---
Patient presented to nursing desk, reporting that his anxiety hadn't improved with the Vistaril and could he have something else to try and help him. Medicated with PRN Zyprexa and Haldol.
[2021-05-13 06:00] VITALS: BP 125/73; PULSE 56; RESP 16; O2SAT 98; BMI 31.0
[2021-05-13] MEDS: fluoxetine 20 mg Capsule 80 MG PO (09:37)
[2021-05-13] MEDS: lamoTRIgine 25 mg Tablet PO (09:37)
[2021-05-13] MEDS: nicotine 2 mg Gum BUCCAL ×3 (09:37→17:57)
--- NOTE | 2021-05-13 10:04 | W.PM.NPUPNS ---
Subjective NPU Subjective: Interval history: He was found in bed at 10 AM. He said that he was tired and bored. He asked me if I had looked to see when he started on the Prozac. He was told that it was May 05 and I had ordered the 80 mg today. I assume that he had already had the medication but he said that he had not. I also told him that I double checked on the Lamictal and it was supposed to be 25 mg daily for 2 weeks and for each dose increase. He has not been on the 25 mg for 1 week at this time. As soon as it was established that he had not taken his morning medication he got up and put on his socks and got out of bed headed to the door despite me standing there talking to him. He said that he did not have anything else that he needed to talk about. Mental Status Exam MSE Comments: This is an overweight, obese, white male, with hospital scrubs on, with limited grooming and good eye contact. No abnormal movements. Psychomotor activity is normal. Cooperative with exam in no distress. Speech was normal rate and volume. Mood described as anxious; affect congruent. Thought process, organized. Thought content: patient denied any suicidal or homicidal ideation, there were no delusions reported or noted, patient denied any auditory or visual hallucinations. Attention, concentration, and memory appear intact but were not formally tested. He is alert and oriented times three. Insight and judgment are limited, impulse control impaired. Cognition: Patient Appearance: Appropriate Level of Consciousness: Awake, Alert, Appropriate and Follows Commands Patient Cognition Impaired: No Ability to Follow Directions: Good Patient Orientation (long list): Person, Place and Name Comprehension Ability: No Impairment Hallucination Type: None Delusion Description: Not Present Thought Process: Appropriate Affect: Affect Description: Depressed Depressive Symptoms: Changes in Appetite, Crying Spells, Difficulty Concentrating, Difficulty Sleeping, Difficulty Making Decisions, Feelings of Worthlessness, Hopelessness, Insomnia, Increased Anxiety, Increased Irritability, Isolating Oneself From Friends and Family, Low Self Esteem, Unexplained Headaches, Unexplained Stomach Pain and Unhappiness Behavior: Patient Behavior: Appropriate and Cooperative Speech Pattern: Appropriate and Clear Vitals/I&O/Wt Last Vital Signs Temp 98.6 F 05/12/21 14:00 Pulse 56 L 05/13/21 06:00 Resp 16 05/13/21 06:00 BP 125/73 05/13/21 06:00 Pulse Ox 98 05/13/21 06:00 Weight last 48 hrs Weight 95.254 kg Data NPU : 05/05/21 21:53 05/05/21 21:53 A&P Assessment and plan (1) Suicidal ideation: Status: Acute (2) Post-traumatic stress disorder, chronic: Status: Acute (3) Nicotine dependence, cigarettes, uncomplicated: Status: Acute (4) Cannabis dependence, uncomplicated: Status: Acute (5) Methamphetamine dependence: Status: Acute (6) PTSD (post-traumatic stress disorder): Status: Acute (7) Anxiety: Status: Acute Additional A&P Information (1) Suicidal ideation: (2) Post-traumatic stress disorder, chronic: (3) Nicotine dependence, cigarettes, uncomplicated: (4) Cannabis dependence, uncomplicated: (5) Methamphetamine dependence: (6) PTSD (post-traumatic stress disorder): (7) Anxiety: Additional A&P Information This is a 25-year-old, white male, with a history of anxiety, childhood trauma, multiple hospitalizations, post-traumatic stress disorder, cannabis use, methamphetamine addiction, and recent lethal behavior with a gun, who presents denying any current issues, but open to medication adjustments. RECOMMENDATION AND PLAN: 1. Continue current medication. Lamictal 25 mg p.o. every morning with a plan to increase by 25 mg every week until he gets 100 mg. Propranolol 20 mg p.o. 3 times daily as needed for anxiety. Prozac increased to 80 mg today. 2. Encourage individual, group, and milieu therapy. 3. Continue q-15 minute checks for safety. 4. Encourage sober living treatment after discharge, at the highest level of care, to which he is willing to commit. 5. Filed 21-day hold and will allow Dr. Mills to decide whether to go to [facility]. Involuntary Hold Information 96 Hour Hold: 96 Hour Involuntary Admission: Yes 96 Hour Hold Ending Date: 05/11/21 96 Hour Hold Ending Time: 00:01 Attestations NPU Medical Necessity Statement*: Inpatient hospitalization is medically necessary and the clinically appropriate intervention at this time. We will initiate medications and make changes as indicated. Coding Level of Care Code Acute Real Estate Valuer for Yina Alfaro Diagnoses Suicidal ideation R45.851 Post-traumatic stress disorder, chronic F43.12 Nicotine dependence, cigarettes, uncomplicated F17.210 Cannabis dependence, uncomplicated F12.20 Methamphetamine dependence F15.20 PTSD (post-traumatic stress disorder) F43.10 Anxiety F41.9
[2021-05-13 13:56] VITALS: BP 150/86; PULSE 65; RESP 16; TEMP 36.2; O2SAT 96
[2021-05-13] MEDS: ibuprofen 600 mg Tablet PO (16:27)
[2021-05-13 22:00] VITALS: BP 138/76; PULSE 74; RESP 16; TEMP 36.8; O2SAT 97
[2021-05-14 06:00] VITALS: BP 102/66; PULSE 61; RESP 16; O2SAT 97
[2021-05-14] MEDS: lamoTRIgine 25 mg Tablet PO (09:17)
[2021-05-14] MEDS: fluoxetine 20 mg Capsule 80 MG PO (09:18)
--- NOTE | 2021-05-14 10:52 | NPU.GN ---
[facility] Topic:Depression/ Anxiety Danette General Mood of Group: Umang did attend group but then left he did not participate. Patient went back to bed.
[2021-05-14] MEDS: nicotine 2 mg Gum BUCCAL ×2 (11:48→17:33)
[2021-05-14] MEDS: ibuprofen 600 mg Tablet PO ×2 (12:07→21:09)
--- NOTE | 2021-05-14 13:40 | P.NPUPN_ITS ---
Subjective NPU Subjective: Interval history: He said that he is doing well. He would like for us to send him to a rehab facility. Evidently the one in town might not have a bed and he had about 1 called [facility] in [place] and he is going to ask the community mental health social worker to contact them to see if they will take him. He is fairly confident that they will. He continues to be in a fairly good mood and denies any suicidal ideation. He is sleeping well. Mental Status Exam MSE Comments: This is an overweight, obese, white male, with hospital scrubs on, with limited grooming and good eye contact. No abnormal movements. Psychomotor activity is normal. Cooperative with exam in no distress. Speech was normal rate and volume. Mood good; affect congruent. Thought process, organized. Thought content: patient denied any suicidal or homicidal ideation, there were no delusions reported or noted, patient denied any auditory or visual hallucinations. Attention, concentration, and memory appear intact but were not formally tested. He is alert and oriented times three. Insight and judgment are limited, impulse control impaired. Cognition: Patient Appearance: Appropriate Level of Consciousness: Awake, Alert, Appropriate and Follows Commands Patient Cognition Impaired: No Ability to Follow Directions: Good Patient Orientation (long list): Person, Place and Name Comprehension Ability: No Impairment Hallucination Type: None Delusion Description: Not Present Thought Process: Appropriate Affect: Affect Description: Appropriate Depressive Symptoms: Changes in Appetite, Crying Spells, Difficulty Concentrating, Difficulty Sleeping, Difficulty Making Decisions, Feelings of Worthlessness, Hopelessness, Insomnia, Increased Anxiety, Increased Irritability, Isolating Oneself From Friends and Family, Low Self Esteem, Unexplained Headaches, Unexplained Stomach Pain and Unhappiness Behavior: Patient Behavior: Appropriate and Cooperative Speech Pattern: Appropriate and Clear Vitals/I&O/Wt Last Vital Signs Temp 98.3 F 05/13/21 22:00 Pulse 61 05/14/21 06:00 Resp 16 05/14/21 06:00 BP 102/66 05/14/21 06:00 Pulse Ox 97 05/14/21 06:00 Weight last 48 hrs Weight 95.254 kg Data NPU : 05/05/21 21:53 05/05/21 21:53 A&P Assessment and plan (1) Suicidal ideation: Status: Acute (2) Post-traumatic stress disorder, chronic: Status: Acute (3) Nicotine dependence, cigarettes, uncomplicated: Status: Acute (4) Cannabis dependence, uncomplicated: Status: Acute (5) Methamphetamine dependence: Status: Acute (6) PTSD (post-traumatic stress disorder): Status: Acute (7) Anxiety: Status: Acute Additional A&P Information (1) Suicidal ideation: (2) Post-traumatic stress disorder, chronic: (3) Nicotine dependence, cigarettes, uncomplicated: (4) Cannabis dependence, uncomplicated: (5) Methamphetamine dependence: (6) PTSD (post-traumatic stress disorder): (7) Anxiety: Additional A&P Information This is a 25-year-old, white male, with a history of anxiety, childhood trauma, multiple hospitalizations, post-traumatic stress disorder, cannabis use, methamphetamine addiction, and recent lethal behavior with a gun, who presents denying any current issues, but open to medication adjustments. RECOMMENDATION AND PLAN: 1. Continue current medication. Lamictal 25 mg p.o. every morning with a plan to increase by 25 mg every 2 weeks until he gets 100 mg. Propranolol 20 mg p.o. 3 times daily as needed for anxiety. Prozac 80 mg. 2. Encourage individual, group, and milieu therapy. 3. Continue q-15 minute checks for safety. 4. Encourage sober living treatment after discharge, at the highest level of care, to which he is willing to commit. 5. Filed 21-day hold and will allow Dr. Mills to decide whether to go to [facility]. Involuntary Hold Information 96 Hour Hold: 96 Hour Involuntary Admission: Yes 96 Hour Hold Ending Date: 05/11/21 96 Hour Hold Ending Time: 00:01 Attestations NPU Medical Necessity Statement*: Inpatient hospitalization is medically necessary and the clinically appropriate intervention at this time. We will initiate medications and make changes as indicated. Coding Level of Care Code Acute Photoengraving Proofer Apprentice for Yina Alfaro Diagnoses Suicidal ideation R45.851 Post-traumatic stress disorder, chronic F43.12 Nicotine dependence, cigarettes, uncomplicated F17.210 Cannabis dependence, uncomplicated F12.20 Methamphetamine dependence F15.20 PTSD (post-traumatic stress disorder) F43.10 Anxiety F41.9
[2021-05-14 14:00] VITALS: BP 135/71; PULSE 77; RESP 16; TEMP 36.7; O2SAT 96
[2021-05-14] MEDS: hyDROXYzine 25 mg Capsule 50 MG PO ×2 (19:05→21:09)
[2021-05-14] MEDS: trazodone 50 mg Tablet PO (21:11)
[2021-05-14 22:00] VITALS: BP 124/87; PULSE 76; RESP 17; O2SAT 96
[2021-05-14] MEDS: OLANZapine 5 mg ODT PO (22:11)
[2021-05-15 06:00] VITALS: BP 113/69; PULSE 60; RESP 18; O2SAT 96
[2021-05-15] MEDS: fluoxetine 20 mg Capsule 80 MG PO (09:30)
[2021-05-15] MEDS: lamoTRIgine 25 mg Tablet PO (09:31)
[2021-05-15] MEDS: nicotine 2 mg Gum BUCCAL ×6 (09:31→21:25)
--- NOTE | 2021-05-15 11:19 | NPU.GN ---
[facility] Topic:Fani Word Search General Mood of Group: Umang did not attend group today he slept today.
[2021-05-15] MEDS: ibuprofen 600 mg Tablet PO (13:39)
[2021-05-15 13:43] VITALS: BP 150/89; PULSE 93; RESP 20; TEMP 36.6; O2SAT 96
--- NOTE | 2021-05-15 14:46 | W.PM.NPUPNS ---
Subjective NPU Subjective: Interval history: He said that he is doing well. He would like for us to send him to a rehab facility. He had an interview with [facility] in [place] and they will take him. However they do not take people who are on Prozac but need him changed to a different SSRI. He agreed to stay until he made the transition over to Lexapro. He continues to be in a fairly good mood and denies any suicidal ideation. He is sleeping well. Mental Status Exam MSE Comments: This is an overweight, obese, white male, with hospital scrubs on, with limited grooming and good eye contact. No abnormal movements. Psychomotor activity is normal. Cooperative with exam in no distress. Speech was normal rate and volume. Mood good; affect congruent. Thought process, organized. Thought content: patient denied any suicidal or homicidal ideation, there were no delusions reported or noted, patient denied any auditory or visual hallucinations. Attention, concentration, and memory appear intact but were not formally tested. He is alert and oriented times three. Insight and judgment are limited, impulse control impaired. Cognition: Patient Appearance: Appropriate Level of Consciousness: Awake, Alert, Appropriate and Follows Commands Patient Cognition Impaired: No Ability to Follow Directions: Good Patient Orientation (long list): Person, Place and Name Comprehension Ability: No Impairment Hallucination Type: None Delusion Description: Not Present Thought Process: Appropriate Affect: Affect Description: Appropriate and Calm Depressive Symptoms: Changes in Appetite, Crying Spells, Difficulty Concentrating, Difficulty Sleeping, Difficulty Making Decisions, Feelings of Worthlessness, Hopelessness, Insomnia, Increased Anxiety, Increased Irritability, Isolating Oneself From Friends and Family, Low Self Esteem, Unexplained Headaches, Unexplained Stomach Pain and Unhappiness Behavior: Patient Behavior: Appropriate and Cooperative Speech Pattern: Appropriate and Clear Vitals/I&O/Wt Last Vital Signs Temp 97.8 F 05/15/21 13:43 Pulse 93 05/15/21 13:43 Resp 20 H 05/15/21 13:43 BP 150/89 05/15/21 13:43 Pulse Ox 96 05/15/21 13:43 Data NPU : 05/05/21 21:53 05/05/21 21:53 A&P Assessment and plan (1) Suicidal ideation: Status: Acute (2) Post-traumatic stress disorder, chronic: Status: Acute (3) Nicotine dependence, cigarettes, uncomplicated: Status: Acute (4) Cannabis dependence, uncomplicated: Status: Acute (5) Methamphetamine dependence: Status: Acute (6) PTSD (post-traumatic stress disorder): Status: Acute (7) Anxiety: Status: Acute Additional A&P Information (1) Suicidal ideation: (2) Post-traumatic stress disorder, chronic: (3) Nicotine dependence, cigarettes, uncomplicated: (4) Cannabis dependence, uncomplicated: (5) Methamphetamine dependence: (6) PTSD (post-traumatic stress disorder): (7) Anxiety: Additional A&P Information This is a 25-year-old, white male, with a history of anxiety, childhood trauma, multiple hospitalizations, post-traumatic stress disorder, cannabis use, methamphetamine addiction, and recent lethal behavior with a gun, who presents denying any current issues, but open to medication adjustments. RECOMMENDATION AND PLAN: 1. Continue current medication. Lamictal 25 mg p.o. every morning with a plan to increase by 25 mg every 2 weeks until he gets 100 mg. Propranolol 20 mg p.o. 3 times daily as needed for anxiety. Continue Prozac. Lexapro 20 mg tomorrow morning 2. Encourage individual, group, and milieu therapy. 3. Continue q-15 minute checks for safety. 4. Encourage sober living treatment after discharge, at the highest level of care, to which he is willing to commit. 5. Filed 21-day hold and will allow Dr. Mills to decide whether to go to [facility]. Involuntary Hold Information 96 Hour Hold: 96 Hour Involuntary Admission: Yes 96 Hour Hold Ending Date: 05/11/21 96 Hour Hold Ending Time: 00:01 Attestations U Medical Necessity Statement*: Inpatient hospitalization is medically necessary and the clinically appropriate intervention at this time. We will initiate medications and make changes as indicated. Coding Level of Care Code Acute Metalizer Field Operation for Yina Fwkatie Diagnoses Suicidal ideation R45.851 Post-traumatic stress disorder, chronic F43.12 Nicotine dependence, cigarettes, uncomplicated F17.210 Cannabis dependence, uncomplicated F12.20 Methamphetamine dependence F15.20 PTSD (post-traumatic stress disorder) F43.10 Anxiety F41.9
[2021-05-15] MEDS: acetaminophen 325 mg Tablet 650 MG PO (19:09)
[2021-05-15 20:04] VITALS: BP 137/82; PULSE 80; RESP 18; O2SAT 97
[2021-05-15] MEDS: hyDROXYzine 25 mg Capsule 50 MG PO (21:24)
[2021-05-15] MEDS: trazodone 50 mg Tablet PO (21:24)
--- NOTE | 2021-05-15 22:17 | PC.NURSE ---
pt request his sleepy time meds. vistaril 50mg for anxiety and trazodone 50mg for sleep given.
[2021-05-16 06:00] VITALS: RESP 18
[2021-05-16] MEDS: nicotine 2 mg Gum BUCCAL ×6 (09:40→21:04)
[2021-05-16] MEDS: lamoTRIgine 25 mg Tablet PO (09:40)
[2021-05-16] MEDS: escitalopram 10 mg Tablet 20 MG PO (09:40)
--- NOTE | 2021-05-16 10:40 | NPU.GN ---
[facility] Topic:Crisis Plan, Triggers, Coping Mechanisms. General Mood of Group: Umang did not participate or attend group today. He was sleeping.
[2021-05-16] MEDS: ibuprofen 600 mg Tablet PO ×2 (11:41→20:26)
--- NOTE | 2021-05-16 12:27 | W.PM.NPUPNS ---
Subjective NPU Subjective: Interval history: He initially said that he did not have any difficulty with the Lexapro this morning. He might have some stomach upset but he frequently has that. He says that his brain was a little cloudy this morning. We are changing him over to Lexapro because the treatment program that he is going to will not allow Prozac but they allow other SSRIs. They also require him to be brought by a close friend on Friday. He is going to call a friend to see if he can stay there until that friend will take him on Friday. He is concerned that he might get very depressed on because his mother on . He would like to stay until . Mental Status Exam MSE Comments: This is an overweight, white male, with hospital scrubs on, with fair grooming and good eye contact. No abnormal movements. Psychomotor activity is normal. Cooperative with exam in no distress. Speech was normal rate and volume. Mood good; affect congruent. Thought process, organized. Thought content: patient denied any suicidal or homicidal ideation, there were no delusions reported or noted, patient denied any auditory or visual hallucinations. Attention, concentration, and memory appear intact but were not formally tested. He is alert and oriented times three. Insight and judgment are limited, impulse control impaired. Cognition: Patient Appearance: Appropriate Level of Consciousness: Awake, Alert, Appropriate and Follows Commands Patient Cognition Impaired: No Ability to Follow Directions: Good Patient Orientation (long list): Person, Place and Name Comprehension Ability: No Impairment Hallucination Type: None Delusion Description: Not Present Thought Process: Circumstantial Affect: Affect Description: Appropriate Depressive Symptoms: Changes in Appetite, Crying Spells, Difficulty Concentrating, Difficulty Sleeping, Difficulty Making Decisions, Feelings of Worthlessness, Hopelessness, Insomnia, Increased Anxiety, Increased Irritability, Isolating Oneself From Friends and Family, Low Self Esteem, Unexplained Headaches, Unexplained Stomach Pain and Unhappiness Behavior: Patient Behavior: Appropriate Speech Pattern: Appropriate Vitals/I&O/Wt Last Vital Signs Temp 97.8 F 05/15/21 13:43 Pulse 80 05/15/21 20:04 Resp 18 05/16/21 06:00 BP 137/82 05/15/21 20:04 Pulse Ox 97 05/15/21 20:04 Data NPU : 05/05/21 21:53 05/05/21 21:53 A&P Assessment and plan (1) Suicidal ideation: Status: Acute (2) Post-traumatic stress disorder, chronic: Status: Acute (3) Nicotine dependence, cigarettes, uncomplicated: Status: Acute (4) Cannabis dependence, uncomplicated: Status: Acute (5) Methamphetamine dependence: Status: Acute (6) PTSD (post-traumatic stress disorder): Status: Acute (7) Anxiety: Status: Acute Additional A&P Information (1) Suicidal ideation: (2) Post-traumatic stress disorder, chronic: (3) Nicotine dependence, cigarettes, uncomplicated: (4) Cannabis dependence, uncomplicated: (5) Methamphetamine dependence: (6) PTSD (post-traumatic stress disorder): (7) Anxiety: Additional A&P Information This is a 25-year-old, white male, with a history of anxiety, childhood trauma, multiple hospitalizations, post-traumatic stress disorder, cannabis use, methamphetamine addiction, and recent lethal behavior with a gun, who presents denying any current issues, but open to medication adjustments. RECOMMENDATION AND PLAN: 1. Continue current medication. Lamictal 25 mg p.o. every morning with a plan to increase by 25 mg every 2 weeks until he gets 100 mg. Propranolol 20 mg p.o. 3 times daily as needed for anxiety. Lexapro 20 mg QAM. Increase to 40 mg as in a few days. 2. Encourage individual, group, and milieu therapy. 3. Continue q-15 minute checks for safety. 4. Encourage sober living treatment after discharge, at the highest level of care, to which he is willing to commit. 5. Filed 21-day hold and will allow Dr. Mills to decide whether to go to [facility]. Involuntary Hold Information 96 Hour Hold: 96 Hour Involuntary Admission: Yes 96 Hour Hold Ending Date: 05/11/21 96 Hour Hold Ending Time: 00:01 Attestations NPU Medical Necessity Statement*: Inpatient hospitalization is medically necessary and the clinically appropriate intervention at this time. We will initiate medications and make changes as indicated. Coding Level of Care Code Acute Hot Die Picker for Yina Alfaro Diagnoses Suicidal ideation R45.851 Post-traumatic stress disorder, chronic F43.12 Nicotine dependence, cigarettes, uncomplicated F17.210 Cannabis dependence, uncomplicated F12.20 Methamphetamine dependence F15.20 PTSD (post-traumatic stress disorder) F43.10 Anxiety F41.9
[2021-05-16 14:00] VITALS: BP 140/88; PULSE 86; RESP 18; TEMP 36.6; O2SAT 95
[2021-05-16] MEDS: acetaminophen 325 mg Tablet 650 MG PO (18:49)
[2021-05-16 20:18] VITALS: BP 135/92; PULSE 91; RESP 16; O2SAT 95
[2021-05-16] MEDS: trazodone 50 mg Tablet PO (20:27)
[2021-05-16] MEDS: hyDROXYzine 25 mg Capsule 50 MG PO (20:27)
--- NOTE | 2021-05-16 20:30 | PC.NURSE ---
Vistaril 50 mg PO given for sleep and Trazadone 50 mg PO given to help pt sleep.
[2021-05-16] MEDS: OLANZapine 5 mg ODT PO (21:48)
--- NOTE | 2021-05-16 21:50 | PC.NURSE ---
Pt continues to c/o anxiety. Zydis 5mg PO administered without complication.
[2021-05-17 06:00] VITALS: BP 132/79; PULSE 69; RESP 15; O2SAT 98
[2021-05-17] MEDS: escitalopram 10 mg Tablet 20 MG PO (09:07)
[2021-05-17] MEDS: nicotine 2 mg Gum BUCCAL ×3 (09:07→15:13)
[2021-05-17] MEDS: lamoTRIgine 25 mg Tablet PO (09:07)
[2021-05-17] MEDS: ibuprofen 600 mg Tablet PO (12:28)
--- NOTE | 2021-05-17 12:56 | NPU.GN ---
[facility] Topic:Fani Activities General Mood of Group: Umang did not attend or participate in group today he was sleeping.
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
[2021-05-17 14:04] VITALS: BP 132/79; PULSE 69; RESP 15; TEMP 36.6; O2SAT 98
[2021-05-17] MEDS: calcium carbonate 500 mg Chew Tablet PO (15:28)
== END 2021-05-17 16:08 | disposition home or self-care (01) | DRG 881 ==
LOC: ER 21:43 → NP 05-06 01:25
PROVIDERS: Admitting Provider Psychiatry & Neurology Psychiatry; Emergency Provider Emergency Medicine; Visit Provider Psychiatry & Neurology Psychiatry
DX: F32.A Depression, unspecified (principal); R45.851 Suicidal ideations; F15.20 Other stimulant dependence, uncomplicated; F12.20 Cannabis dependence, uncomplicated; I10 Essential (primary) hypertension; F17.210 Nicotine dependence, cigarettes, uncomplicated; F43.12 Post-traumatic stress disorder, chronic; F63.81 Intermittent explosive disorder; E66.9 Obesity, unspecified; Z68.31 Body mass index [BMI] 31.0-31.9, adult; F41.9 Anxiety disorder, unspecified; Z81.8 Family history of other mental and behavioral disorders
CPT/HCPCS: 71045; 80053; 80306; 80307; 81001; 85025; 87426; 97150; 97165; 99285; Q0162

== ENCOUNTER → 2023-10-02 11:16 | Outpatient (BNVA) | payer MEDICAID, SELFPAY | PROVIDERS: Visit Provider Family Medicine | DX: V19.9XXA Pedal cyclist (driver) (passenger) injured in unspecified traffic accident, initial encounter (principal); R10.11 Right upper quadrant pain; R36.9 Urethral discharge, unspecified | CPT/HCPCS: 74018; 81003; 87491; 87591 ==